=== PATIENT | female | born 1950 | race Caucasian/White ===

== ENCOUNTER 2017-07-12 20:15 | Inpatient (IN) | payer MEDICARE, OTHER ==
[2017-07-12] MEDS ORDERED: Albuterol 0.083% 2.5 MG/3 ML Neb Soln NEB ONE (20:47)
--- NOTE | 2017-07-12 20:47 | EDM.PDOC ---
ED HPI GENERAL MEDICAL PROBLEM - General Chief Complaint: Fever Stated Complaint: MEDICAL VIA TRI Time Seen by Provider: 07/12/17 20:46 Source of Information: Reports: Patient History Limitations: Reports: No Limitations - History of Present Illness INITIAL COMMENTS - FREE TEXT/NARRATIVE: pt arrived with increased sob and low o2 sats, Onset: Gradual, Other (pt became very confused today. ) Duration: Hour(s):, Getting Worse Location: Reports: Chest Associated Symptoms: Reports: Confusion, Cough, Fever/Chills, Loss of Appetite, Shortness of Breath denies pain Pain Score (Numeric/FACES): 0 - Related Data Allergies Allergy/AdvReac Type Severity Reaction Status Date / Time cyclobenzaprine HCl AdvReac Abdominal Verified 07/12/17 20:46 [From Flexeril] Pain hydrocodone bitartrate AdvReac Abdominal Verified 07/12/17 20:46 [From Vicodin] Pain Home Meds: Home Meds Folic Acid 1 mg PO DAILY 10/07/13 [History] Hydroxychloroquine [Plaquenil] 400 mg PO DAILY 10/07/13 [History] Methotrexate Sodium [Methotrexate] 20 mg PO Q7D 10/07/13 [History] Cholecalciferol (Vitamin D3) [Vitamin D3] 3,000 unit PO DAILY 02/06/14 [History] Ondansetron [Zofran ODT] 4 mg PO Q4HR PRN 02/06/14 [History] Cyanocobalamin (Vitamin B-12) [Vitamin B-12] 1,000 mcg SL DAILY 02/07/14 [ History] Multivitamin [Chewable Multi Vitamin] 2 tab PO DAILY 02/07/14 [History] Vitamin B Complex [Vitamin B-100 Complex] 1 each PO DAILY 02/07/14 [History] Aspirin [Adult Low Dose Aspirin EC] 81 mg PO DAILY 03/20/15 [History] LORazepam [Ativan] 0.5 mg PO Q6H PRN 08/11/15 [History] Albuterol Sulfate 3 ml INH Q4H PRN 09/11/16 [History] Fluticasone/Salmeterol [Advair Diskus 500-50] 1 puff INH BID 09/11/16 [History] Metoprolol Tartrate 12.5 mg PO BID 09/12/16 [History] traMADol [Ultram] 50 - 100 mg PO Q6H PRN 09/30/16 [History] Omeprazole 1 cap PO DAILY 02/22/17 [History] Ca Carb & Gluc/Mag Ox & Gluc [Calcium Magnesium Caplet] 1 tab PO DAILY 07/12/17 [History] Ranitidine [Zantac] 300 mg PO DAILY 07/12/17 [History] Past Medical History HEENT History: Reports: Impaired Vision, Other (See Below) Other HEENT History: "hole in septum" Cardiovascular History: Reports: None Other Respiratory History: Pt states she has a lung disease, celestial type disease? Gastrointestinal History: Reports: Bowel Obstruction, Chronic Constipation [employer] WORKER History: Reports: Musculoskeletal History: Reports: Arthritis, Fracture, Fibromyalgia, Osteoarthritis, Osteoporosis, RA Neurological History: Reports: Vertigo Psychiatric History: Reports: Anxiety, Panic Attack Endocrine/Metabolic History: Reports: Osteoporosis, Vitamin D Deficiency Hematologic History: Reports: Anemia, B12 Deficiency, Blood Transfusion(s), Iron Deficiency Immunologic History: Reports: None Oncologic (Cancer) History: Reports: None - Infectious Disease History Infectious Disease History: Reports: Chicken Pox Other Infectious Disease History: lymes disease - Past Surgical History Head Surgeries/Procedures: Reports: None Cardiovascular Surgical History: Reports: Other (See Below) GI Surgical History: Reports: Bariatric Procedure, Cholecystectomy, Colon, Colonoscopy, Hernia Repair/Other Other Female Surgeries/Procedures: bladder suspension Neurological Surgical History: Reports: None Musculoskeletal Surgical History: Reports: Carpal Tunnel Dermatological Surgical History: Reports: Skin Graft Social & Family History - Tobacco Use Smoking Status *Q: Never Smoker Second Hand Smoke Exposure: No - Caffeine Use Caffeine Use: Reports: Coffee - Alcohol Use Days Per Week of Alcohol Use: 0 - Recreational Drug Use Recreational Drug Use: No - Living Situation & Occupation Living situation: Reports: , with Family Occupation: Retired ED ROS GENERAL - Review of Systems Review Of Systems: See Below Constitutional: Reports: Fever, Chills, Malaise, Decreased Appetite HEENT: Reports: No Symptoms Respiratory: Reports: Shortness of Breath, Other (o2 sats ) Cardiovascular: Reports: No Symptoms Endocrine: Reports: No Symptoms GI/Abdominal: Reports: No Symptoms : Reports: No Symptoms Musculoskeletal: Reports: No Symptoms ED EXAM, GENERAL - Physical Exam Exam: See Below Free Text/Narrative:: pt arrived with a fever,confusion and history of low o2 sats. Exam Limited By: Respiratory Distress General Appearance: Alert, Anxious, Moderate Distress, Other ( pupils equal and reactive. ) Ears: Normal TMs Nose: Normal Inspection Throat/Mouth: Other ( mucous membranes were dry. ) Head: Atraumatic Neck: Normal Inspection Respiratory/Chest: Decreased Breath Sounds, Wheezing Cardiovascular: Tachycardia, Irregularly Irregular GI/Abdominal: Soft, Non-Tender (Female) Exam: Deferred Rectal (Female) Exam: Deferred Back Exam: Normal Inspection Extremities: Normal Inspection Neurological: Alert, Confused Course - Vital Signs Last Recorded V/S: Last Vital Signs Temp 38.4 C H 07/12/17 23:40 Pulse 92 07/12/17 23:40 Resp 24 H 07/12/17 23:40 BP 112/67 07/12/17 23:40 Pulse Ox 97 07/12/17 23:40 - Orders/Labs/Meds Orders: Active Orders 24 hr Category Date Time Status RT Aerosol Therapy [RC] ASDIRECTED Care 07/12/17 20:47 Active Ang Chest [CT] Stat Exams 07/12/17 22:09 Taken Chest 1V Frontal [CR] Stat Exams 07/12/17 20:46 Taken Head wo Cont [CT] Stat Exams 07/12/17 22:08 Taken CULTURE BLOOD [BC] Urgent Lab 07/12/17 20:49 Received CULTURE BLOOD [BC] Urgent Lab 07/12/17 20:59 Received CULTURE URINE [RM] Stat Lab 07/13/17 00:13 Ordered Iopamidol [Isovue-370 (76%)] Med 07/12/17 22:15 Active 100 ml IV . DIRECTED Sodium Chloride 0.9% [Normal Saline] 1,000 ml Med 07/12/17 21:00 Active IV ASDIRECTED Sodium Chloride 0.9% [Normal Saline] 80 ml Med 07/12/17 22:15 Active IV ASDIRECTED Sodium Chloride 0.9% [Saline Flush] Med 07/12/17 22:12 Active 10 ml FLUSH ASDIRECTED PRN Blood Culture x2 Reflex Set [OM.PC] Urgent Oth 07/12/17 20:44 Ordered Medication Orders Sodium Chloride (Normal Saline) 1,000 mls @ 250 mls/hr IV ASDIRECTED DG Last Admin: 07/12/17 21:03 Dose: 250 mls/hr Sodium Chloride (Normal Saline) 80 mls @ 3 mls/sec IV ASDIRECTED DG Last Admin: 07/12/17 22:49 Dose: 3 mls/sec Iopamidol (Isovue-370 (76%)) 100 ml IV . DIRECTED DG Last Admin: 07/12/17 22:49 Dose: 100 ml Sodium Chloride (Saline Flush) 10 ml FLUSH ASDIRECTED PRN PRN Reason: Keep Vein Open Last Admin: 07/12/17 22:49 Dose: 10 ml Labs: Laboratory Tests 07/12/17 07/12/17 07/12/17 Range/Units 20:40 20:40 20:40 WBC 5.1 (4.5-11.0) K/uL RBC 4.73 (3.30-5.50) M/uL Hgb 14.4 (12.0-15.0) g/dL Hct 43.9 (36.0-48.0) % MCV 93 (80-98) fL MCH 30 (27-31) pg MCHC 33 (32-36) % Plt Count 202 (150-400) K/uL Neut % (Auto) 76 H (36-66) % Lymph % (Auto) 16 L (24-44) % [place] % (Auto) 7 H (2-6) % Eos % (Auto) 1 L (2-4) % Baso % (Auto) 0 (0-1) % D-Dimer, Quantitative (0.0-400.0) ng/mL Puncture Site Rt radial ABG pH 7.433 (7.350-7.450) ABG pCO2 37.3 (35.0-42.0) mmHg ABG pO2 88.5 (75.0-100.0) mmHg ABG HCO3 24.5 (22.0-26.0) mmol/L ABG Total CO2 21.4 (21.0-25.0) mmol/L ABG O2 Saturation 95.4 (95.0-98.0) % ABG O2 Content 18.6 (15.0-23.0) %vol ABG Base Excess 1.0 mm/L ABG Hemoglobin 14.1 (12.0-16.0) g/dL ABG Oxyhemoglobin 93.4 % ABG Carboxyhemoglobin 0.1 (0.0-1.6) % ABG Methemoglobin 2.0 % Rodri Test Passed O2 Delivery Device Nasal cannula Sodium 136 L (140-148) mmol/L Potassium 3.8 (3.6-5.2) mmol/L Chloride 99 L (100-108) mmol/L Carbon Dioxide 28 (21-32) mmol/L Anion Gap 12.8 (5.0-14.0) mmol/L BUN 10 (7-18) mg/dL Creatinine 0.7 D (0.6-1.0) mg/dL Est Cr Clr Drug Dosing 54.48 mL/min Estimated GFR (MDRD) > 60 (>60) Glucose 112 H (74-106) mg/dL Calcium 8.6 (8.5-10.1) mg/dL Total Bilirubin 0.2 D (0.2-1.0) mg/dL AST 300 H D (15-37) U/L ALT 163 H (12-78) U/L Alkaline Phosphatase 84 D (46-116) U/L Ammonia (11-32) mmol/L C-Reactive Protein (0.0-0.3) mg/dL NT-Pro-B Natriuret Pep (5-125) pg/mL Total Protein 7.3 (6.4-8.2) g/dL Albumin 3.3 L (3.4-5.0) g/dL Globulin 4.0 H (2.3-3.5) g/dL Albumin/Globulin Ratio 0.8 L (1.2-2.2) Urine Color Urine Appearance Urine pH (4.5-8.0) Ur Specific [place] (1.008-1.030) Urine Protein (NEGATIVE) mg/dL Urine Glucose (UA) (NEGATIVE) mg/dL Urine Ketones (NEGATIVE) mg/dL Urine Occult Blood (NEGATIVE) Urine Nitrite (NEGATIVE) Urine Bilirubin (NEGATIVE) Urine Urobilinogen (NORMAL) mg/dL Ur Leukocyte Esterase (NEGATIVE) Urine RBC (0-5) Urine WBC (0-5) Ur Epithelial Cells Amorphous Sediment Urine Bacteria Urine Mucus 07/12/17 07/12/17 07/12/17 Range/Units 21:18 21:20 21:20 WBC (4.5-11.0) K/uL RBC (3.30-5.50) M/uL Hgb (12.0-15.0) g/dL Hct (36.0-48.0) % MCV (80-98) fL MCH (27-31) pg MCHC (32-36) % Plt Count (150-400) K/uL Neut % (Auto) (36-66) % Lymph % (Auto) (24-44) % [place] % (Auto) (2-6) % Eos % (Auto) (2-4) % Baso % (Auto) (0-1) % D-Dimer, Quantitative 735 H (0.0-400.0) ng/mL Puncture Site ABG pH (7.350-7.450) ABG pCO2 (35.0-42.0) mmHg ABG pO2 (75.0-100.0) mmHg ABG HCO3 (22.0-26.0) mmol/L ABG Total CO2 (21.0-25.0) mmol/L ABG O2 Saturation (95.0-98.0) % ABG O2 Content (15.0-23.0) %vol ABG Base Excess mm/L ABG Hemoglobin (12.0-16.0) g/dL ABG Oxyhemoglobin % ABG Carboxyhemoglobin (0.0-1.6) % ABG Methemoglobin % Rodri Test O2 Delivery Device Sodium (140-148) mmol/L Potassium (3.6-5.2) mmol/L Chloride (100-108) mmol/L Carbon Dioxide (21-32) mmol/L Anion Gap (5.0-14.0) mmol/L BUN (7-18) mg/dL Creatinine (0.6-1.0) mg/dL Est Cr Clr Drug Dosing mL/min Estimated GFR (MDRD) (>60) Glucose (74-106) mg/dL Calcium (8.5-10.1) mg/dL Total Bilirubin (0.2-1.0) mg/dL AST (15-37) U/L ALT (12-78) U/L Alkaline Phosphatase (46-116) U/L Ammonia (11-32) mmol/L C-Reactive Protein 2.54 H (0.0-0.3) mg/dL NT-Pro-B Natriuret Pep 91 (5-125) pg/mL Total Protein (6.4-8.2) g/dL Albumin (3.4-5.0) g/dL Globulin (2.3-3.5) g/dL Albumin/Globulin Ratio (1.2-2.2) Urine Color Urine Appearance Urine pH (4.5-8.0) Ur Specific [place] (1.008-1.030) Urine Protein (NEGATIVE) mg/dL Urine Glucose (UA) (NEGATIVE) mg/dL Urine Ketones (NEGATIVE) mg/dL Urine Occult Blood (NEGATIVE) Urine Nitrite (NEGATIVE) Urine Bilirubin (NEGATIVE) Urine Urobilinogen (NORMAL) mg/dL Ur Leukocyte Esterase (NEGATIVE) Urine RBC (0-5) Urine WBC (0-5) Ur Epithelial Cells Amorphous Sediment Urine Bacteria Urine Mucus 07/12/17 07/12/17 Range/Units 22:07 22:28 WBC (4.5-11.0) K/uL RBC (3.30-5.50) M/uL Hgb (12.0-15.0) g/dL Hct (36.0-48.0) % MCV (80-98) fL MCH (27-31) pg MCHC (32-36) % Plt Count (150-400) K/uL Neut % (Auto) (36-66) % Lymph % (Auto) (24-44) % [place] % (Auto) (2-6) % Eos % (Auto) (2-4) % Baso % (Auto) (0-1) % D-Dimer, Quantitative (0.0-400.0) ng/mL Puncture Site ABG pH (7.350-7.450) ABG pCO2 (35.0-42.0) mmHg ABG pO2 (75.0-100.0) mmHg ABG HCO3 (22.0-26.0) mmol/L ABG Total CO2 (21.0-25.0) mmol/L ABG O2 Saturation (95.0-98.0) % ABG O2 Content (15.0-23.0) %vol ABG Base Excess mm/L ABG Hemoglobin (12.0-16.0) g/dL ABG Oxyhemoglobin % ABG Carboxyhemoglobin (0.0-1.6) % ABG Methemoglobin % Rodri Test O2 Delivery Device Sodium (140-148) mmol/L Potassium (3.6-5.2) mmol/L Chloride (100-108) mmol/L Carbon Dioxide (21-32) mmol/L Anion Gap (5.0-14.0) mmol/L BUN (7-18) mg/dL Creatinine (0.6-1.0) mg/dL Est Cr Clr Drug Dosing mL/min Estimated GFR (MDRD) (>60) Glucose (74-106) mg/dL Calcium (8.5-10.1) mg/dL Total Bilirubin (0.2-1.0) mg/dL AST (15-37) U/L ALT (12-78) U/L Alkaline Phosphatase (46-116) U/L Ammonia 7 L (11-32) mmol/L C-Reactive Protein (0.0-0.3) mg/dL NT-Pro-B Natriuret Pep (5-125) pg/mL Total Protein (6.4-8.2) g/dL Albumin (3.4-5.0) g/dL Globulin (2.3-3.5) g/dL Albumin/Globulin Ratio (1.2-2.2) Urine Color Yellow Urine Appearance Slightly cloudy Urine pH 5.0 (4.5-8.0) Ur Specific [place] 1.020 (1.008-1.030) Urine Protein Negative (NEGATIVE) mg/dL Urine Glucose (UA) Normal (NEGATIVE) mg/dL Urine Ketones 15 H (NEGATIVE) mg/dL Urine Occult Blood Moderate (NEGATIVE) Urine Nitrite Negative (NEGATIVE) Urine Bilirubin Negative (NEGATIVE) Urine Urobilinogen Normal (NORMAL) mg/dL Ur Leukocyte Esterase Moderate (NEGATIVE) Urine RBC 0-5 (0-5) Urine WBC 10-20 H (0-5) Ur Epithelial Cells Few Amorphous Sediment Not seen Urine Bacteria Moderate Urine Mucus Not seen Meds: Medications Generic Name Dose Route Start Last Admin Trade Name Freq PRN Reason Stop Dose Admin Sodium Chloride 1,000 mls @ 250 mls/hr 07/12/17 21:00 07/12/17 21:03 Normal Saline IV 250 mls/hr ASDIRECTED DG Administration Sodium Chloride 80 mls @ 3 mls/sec 07/12/17 22:15 07/12/17 22:49 Normal Saline IV 3 mls/sec ASDIRECTED DG Administration Iopamidol 100 ml 07/12/17 22:15 07/12/17 22:49 Isovue-370 (76%) IV 100 ml . DIRECTED DG Administration Sodium Chloride 10 ml 07/12/17 22:12 07/12/17 22:49 Saline Flush FLUSH 10 ml ASDIRECTED PRN Administration Keep Vein Open Discontinued Medications Generic Name Dose Route Start Last Admin Trade Name Leonardo PRN Reason Stop Dose Admin Acetaminophen 650 mg 07/12/17 21:24 07/12/17 21:41 Tylenol PO 07/12/17 21:25 650 mg NOW ONE Administration Albuterol 2.5 mg 07/12/17 20:47 07/12/17 20:59 Proventil Neb Soln NEB 07/12/17 20:48 2.5 mg ONETIME ONE Administration - Re-Assessments/Exams Free Text/Narrative Re-Assessment/Exam: 07/13/17 00:24 pt did not have a elevated wbc. Her temp was greater than 102. She had been chilling and was quite confused. Her chest xray did not reveal a definite infiltrate. She was quite wheezy. Her urine did look infected. Because of the low o2 sats a cat scan of the chest was done which did not reveal pulmonary emboli. She did not have a definite looking pneumonia. Blod cultures are pending phuc urine culture is pending. Departure - Departure Time of Disposition: 00:28 Disposition: Admitted As Inpatient 64 Condition: Fair Clinical Impression: UTI (urinary tract infection), COPD exacerbation, Dehydration - Discharge Information Referrals: PCP,None [Primary Care Provider] - Forms: ED Department Discharge Care Plan Goals: admit to Dr Shepard - My Orders Last 24 Hours: My Active Orders 07/12/17 20:44 Blood Culture x2 Reflex Set [OM.PC] Urgent 07/12/17 20:46 Chest 1V Frontal [CR] Stat 07/12/17 20:47 RT Aerosol Therapy [RC] ASDIRECTED 07/12/17 20:49 CULTURE BLOOD [BC] Urgent 07/12/17 20:59 CULTURE BLOOD [BC] Urgent 07/12/17 21:00 Sodium Chloride 0.9% [Normal Saline] 1,000 ml IV ASDIRECTED 07/12/17 22:08 Head wo Cont [CT] Stat 07/12/17 22:09 Ang Chest [CT] Stat 07/12/17 22:12 Sodium Chloride 0.9% [Saline Flush] 10 ml FLUSH ASDIRECTED PRN 12/05/17 22:15 Iopamidol [Isovue-370 (76%)] 100 ml IV . DIRECTED Sodium Chloride 0.9% [Normal Saline] 80 ml IV ASDIRECTED 07/13/17 00:13 CULTURE URINE [RM] Stat - Assessment/Plan Last 24 Hours: My Active Orders 07/12/17 20:44 Blood Culture x2 Reflex Set [OM.PC] Urgent 07/12/17 20:46 Chest 1V Frontal [CR] Stat 07/12/17 20:47 RT Aerosol Therapy [RC] ASDIRECTED 07/12/17 20:49 CULTURE BLOOD [BC] Urgent 07/12/17 20:59 CULTURE BLOOD [BC] Urgent 07/12/17 21:00 Sodium Chloride 0.9% [Normal Saline] 1,000 ml IV ASDIRECTED 07/12/17 22:08 Head wo Cont [CT] Stat 07/12/17 22:09 Ang Chest [CT] Stat 07/12/17 22:12 Sodium Chloride 0.9% [Saline Flush] 10 ml FLUSH ASDIRECTED PRN 07/12/17 22:15 Iopamidol [Isovue-370 (76%)] 100 ml IV . DIRECTED Sodium Chloride 0.9% [Normal Saline] 80 ml IV ASDIRECTED 07/13/17 00:13 CULTURE URINE [RM] Stat
[2017-07-12] MEDS: Sodium Chloride 0.9% 1,000 ML IV SCH (21:03)
[2017-07-12] MEDS ORDERED: Acetaminophen 325 MG Tab PO ONE (21:24)
[2017-07-12] MEDS ORDERED: Sodium Chloride 0.9% 10 ML Syringe FLUSH PRN (22:12)
[2017-07-12] MEDS ORDERED: Sodium Chloride 0.9% 80 ML IV SCH (22:15)
[2017-07-12] MEDS ORDERED: Iopamidol 755 Mg/ML 100 ML Bottle IV SCH (22:15)
[2017-07-13] MEDS ORDERED: Ibuprofen 400 MG Tab PO ONE (00:19)
[2017-07-13] MEDS ORDERED: Levofloxacin/Dextrose 5%-Water 500 MG in Premix Bag 1 BAG IV ONE (00:20)
[2017-07-13] MEDS: Sodium Chloride 0.9% 1,000 ML IV SCH ×3 (00:47→05:35)
[2017-07-13] MEDS ORDERED: METHOTREXATE SODIUM 20 MG PO SCH (01:00)
[2017-07-13] MEDS ORDERED: Acetaminophen 325 MG Tab, 50 Tab Bulk Bottle PO PRN (01:33)
[2017-07-13] MEDS ORDERED: FLU Vacc TS 2017-18 (65yr UP)/PF 180 MCG/0.5 ML Syringe IM ONE (02:01)
[2017-07-13] MEDS: cefTRIAXone 1 GM in Sodium Chloride 0.9% 50 ML IV SCH (02:06)
[2017-07-13] MEDS: traMADol 50 MG Tab PO PRN ×2 (02:12→22:20)
--- NOTE | 2017-07-13 04:39 | HP ---
IDENTIFYING DATA: Svitlana Fernando is a 67-year-old female from [place], [place]. CHIEF COMPLAINT: Shortness of breath and reported fever. HISTORY OF PRESENT ILLNESS: A 67-year-old non-smoking female, has a history of chronic obstructive pulmonary disease with nocturnal O2 use as well as bronchodilator-inhaled therapies. She reports she has received her annual influenza vaccine and pneumococcal vaccine previously, and has not received her 2017 influenza vaccine. She has a two-day history of increasing congestion, cough, chest tightness, and scant sputum production, as well as fevers to 102 degrees with accompanying weakness and generalized confusion. She was transported to the emergency room for evaluation. She has had no purulent sputum production or hemoptysis noted. Appetite is diminished by patient's report. Initial confusion noted at the time of presentation, has improved with IV fluids, bronchodilator therapies, and O2 administration. PAST MEDICAL HISTORY: 1. History of obstructive pulmonary disease. 2. Additionally, she has noted history of hypertension. 3. Chronic rheumatoid arthritis with analgesic and anti-inflammatory therapies. HABITS: Non-smoker. No alcohol use. Caffeine intake is reported at one to one and a half cups of coffee daily. ALLERGIES: REPORTED TO CYCLOBENZAPRINE. GI UPSET AND ABDOMINAL PAIN WITH USE OF HYDROCODONE. CURRENT MEDICATIONS: 1. Folic acid 1 mg daily. 2. Plaquenil 400 mg daily. 3. Methotrexate 20 mg weekly. 4. Vitamin D3, 3000 units daily. 5. Zofran 4 mg q.4 hours p.r.n. nausea. 6. Vitamin B12, 1000 mcg sublingually daily. 7. Multivitamin with minerals two tablets daily. 8. Vitamin B complex one daily. 9. Aspirin 81 mg daily. 10.Lorazepam 0.5 mg q.6 hours p.r.n. anxiety. 11.Albuterol metered-dose inhaler, two puffs q.4 hours p.r.n. 12.Advair Diskus 500/50 one puff b.i.d. 13.Metoprolol tartrate 12.5 mg b.i.d. 14.Tramadol 50 mg to 100 mg q.6 hours p.r.n. pain. 15.Omeprazole 40 mg daily. 16.Calcium carbonate with magnesium oxide and calcium gluconate one tablet daily. 17.Ranitidine 300 mg daily. SOCIAL HISTORY: [place]. She is independent with performance of ADLs, able to dress, feed, bathe, and perform light household activities including laundry and cleaning and meal preparation. She no longer drives. She has had no recent falls when walking out or if she does use a walker. She ambulates independently in the house. FAMILY HISTORY: She denies familial history of recent acute respiratory illnesses. REVIEW OF SYSTEMS: NEUROLOGIC: Glasses are worn. She reports early cataract changes. No history of glaucoma, stroke, seizures, or focal weakness. Chronic hearing loss with deafness in the left ear and diminished auditory acuity in the right. CARDIAC: Noted history of hypertension. She reports an atrial septal defect. No history of [place] or congestive heart failure or diabetes. Lipid status is unknown. She has had two previous cardio-ablative procedures for reasons of dysrhythmia. No previous pacemaker placement. RESPIRATORY: Chronic obstructive pulmonary disease with O2 and inhaled therapy use. Request influenza vaccine today. GASTROINTESTINAL: Dyspeptic symptoms are managed with omeprazole. No recent nausea, emesis, hematemesis, diarrhea, melena, or hematochezia. No history of hepatitis or chronic liver disease. GENITOURINARY: She rises once nightly to void. No urinary incontinence or chronic renal disease. MUSCULOSKELETAL: Chronic rheumatoid arthritis managed with Plaquenil, methotrexate, and p.r.n. tramadol. She is followed by Rheumatology Services for ongoing management. PAST SURGICAL HISTORY: Previous surgeries include 1. Bariatric weight loss surgery. 2. Cholecystectomy. 3. Colonoscopy. PHYSICAL EXAMINATION: GENERAL: Appearance is that of a mildly weak and elderly female. Oxygen is in place with minimally labored respiratory effort. VITAL SIGNS: Initial vitals, temperature was elevated at 38.4 degrees centigrade, pulse rate was 92, respiratory rate was 24, blood pressure was 112/67, and O2 saturations were 97% with supplemental O2 by nasal cannula. HEENT: Diminished hearing. Canals and TMs are normal. Pupils are reactive to light. Sclerae are anicteric. No nasal congestion. She is edentulous. Oral mucosa is moist. NECK: No adenopathy or thyromegaly. Brisk carotid pulses. No bruits or JVD. LUNGS: Resonant, now is non-tachypneic. No wheezes are heard. She had bilateral inspiratory rales, most notably over the left anterior chest in the upper lungs. HEART: Regular without gallops. Grade 2 mid systolic murmur was heard at the apical area radiating to the left sternal border. ABDOMEN: Soft, nontender, and nondistended. No organomegaly. Active sounds. Good femoral pulses. No bruits. No CVA pain. EXTREMITIES: Good arterial pulses. Mild arthritic changes of the MP and IP joints of the hands. No acute inflammatory changes were noted. SKIN: Warm, pink, and dry without rashes. LABORATORY DATA: On admission, WBC was 5.1, hemoglobin was 14.4, and platelet count was 202,000 with 76 neutrophils, 16 lymphocytes, and 7 monos. ABGs with nasal cannula at 2 L include a pH of 7.43, pCO2 of 37, pO2 of 88.5, and bicarb of 24.5 with a carboxyhemoglobin within normal range at 0.1. Sodium of 136, potassium of 3.8, BUN of 10, creatinine of 0.7, glucose of 112, calcium of 8.6, AST is moderately elevated at 300, and alkaline phosphatase of 84. Urinalysis with specific gravity of 1.020, positive ketonuria, 10 to 20 wbc's, moderate bacteria, and few epithelial cells. Urine and blood cultures are pending. Ammonia level is low at 7. ProBNP was within normal range at 91. C-reactive protein is 2.54. D- dimer is elevated at 735. DIAGNOSTIC STUDIES: CT imaging of the chest did not reveal a confirmed evidence of pulmonary emboli or infiltrates. A nasal smear for influenza A and B is negative. IMPRESSION: 1. Presentation of increased cough, congestion, shortness of breath, and fever with a clinical presentation of early pneumonia. 2. Chronic obstructive pulmonary disease. 3. Chronic rheumatoid arthritis, on relative immunosuppressant therapy with the use of methotrexate and Plaquenil. 4. Hypertension. 5. Intermittent dyspepsia. PLAN: The patient will be admitted to inpatient services. We will provide oxygen, respiratory monitoring, and use of inhaled bronchodilator therapies. Additionally, blood culture is pending. We will initiate empiric antibiotic therapy with oral azithromycin and IV ceftriaxone. Anticipate hospital stay of less than 72 hours and subsequent discharge to home with outpatient followup. We will continue with the anti-rheumatologic therapies previously initiated. If liver transaminases remain elevated, consider also an abdominal ultrasound for further evaluation of elevated liver function tests. A full code status will be maintained. Allow activity as tolerated with standby assistance. Regular diet to be provided. We will administer influenza vaccine during hospital stay. Jey Shepard MD /[id number]
--- NOTE | 2017-07-13 05:53 | PN ---
DATE OF SERVICE: 07/13/2017 SUBJECTIVE: Adult female with a history of obstructive pulmonary disease who was admitted in the size maker hours with fever, congestion, cough, and increased shortness of breath. She was found to have respiratory rales and febrile presentation consistent with early pulmonary infection with a normal WBC and chest x-ray. She has had ongoing cough through the night as well as mild shortness of breath. Fever has corrected with antipyretics. Denies pain. OBJECTIVE: VITAL SIGNS: Temperature 37.5 degrees centigrade, pulse rate 82 and regular, blood pressure 92/44, respiratory rate 16, with supplemental O2 at 98% by oxygen at 2 L nasal cannula. NECK: Brisk carotid pulses. No stridor. No bruits. LUNGS: Frequent mildly productive cough is heard. Inspiratory rales persist over the right upper chest. No wheezes or rhonchi. HEART: Regular without murmurs. SKIN: Warm and pink. IMPRESSION AND PLANS: Early pulmonary infection. We will continue with broad-spectrum antibiotics and bronchodilator therapies as well as supplemental O2. We will provide Robitussin AC on a p.r.n. basis for cough. The patient is cautioned of potential GI upset from codeine containing products. IV is decreased to saline lock. Continue with oral azithromycin and IV ceftriaxone with oral azithromycin and IV ceftriaxone pending. Jey Shepard MD /[id number]
[2017-07-13] MEDS ORDERED: Formoterol/Mometasone 200-5 MCG 8.8 GM Inhaler IH SCH ×2 (07:00→07:17)
[2017-07-13] MEDS: Ondansetron 4 MG Tab.DIS PO PRN ×2 (07:34→12:12)
[2017-07-13] MEDS: Codeine/guaiFENesin 100mg-10 MG/5 ML Syrup 10 ML Cup PO PRN ×4 (07:40→22:20)
--- NOTE | 2017-07-13 08:44 | CR ---
Chest 1V Frontal INDICATION: sob COMPARISON: 09/14/2016 FINDINGS: AP portable chest. Cardiomegaly and vascular congestion. No focal consolidation or pleura l effusion. IMPRESSION: CHF.
[2017-07-13] MEDS: Pantoprazole 40 MG Tab.CR PO SCH (08:51)
[2017-07-13] MEDS: Aspirin 81 MG Tab.EC PO SCH (08:52)
[2017-07-13] MEDS: Folic Acid 1 MG Tab PO SCH (08:52)
[2017-07-13] MEDS: Metoprolol Tartrate 25 MG Tab PO SCH ×2 (08:52→21:52)
[2017-07-13] MEDS: Hydroxychloroquine 200 MG Tab PO SCH (08:53)
[2017-07-13] MEDS: Vitamin B Complex Tab PO SCH (08:53)
[2017-07-13] MEDS: Cholecalciferol (Vitamin D3) 1,000 Unit Tab PO SCH (08:54)
[2017-07-13] MEDS ORDERED: Azithromycin 250 MG Tab PO SCH (09:00)
[2017-07-13] MEDS ORDERED: OMEPRAZOLE PO SCH (09:00)
[2017-07-13] MEDS ORDERED: Non-Formulary Medication 1 Each (Fluticasone/Salmeterol [Advair Diskus 500-50] 1 PUFF) INH SCH (09:00)
[2017-07-13] MEDS: MAG OX PO SCH (09:10)
[2017-07-13] MEDS: CA CARB PO SCH (09:10)
[2017-07-13] MEDS: GLUC PO SCH (09:10)
[2017-07-13] MEDS: Formoterol/Mometasone 200-5 MCG 8.8 GM Inhaler IH SCH ×2 (09:31→21:52)
[2017-07-13] MEDS: Acetaminophen 325 MG Tab PO PRN ×2 (12:07→23:48)
[2017-07-13] MEDS: Albuterol/Ipratropium 3.0-0.5 MG/3 ML Neb Soln NEB PRN (23:54)
[2017-07-14] MEDS: cefTRIAXone 1 GM in Sodium Chloride 0.9% 50 ML IV SCH (01:33)
[2017-07-14] MEDS: LORazepam 0.5 MG Tab PO PRN ×2 (01:33→21:59)
[2017-07-14] MEDS: Formoterol/Mometasone 200-5 MCG 8.8 GM Inhaler IH SCH ×2 (07:42→20:59)
[2017-07-14] MEDS ORDERED: Midazolam 1 MG/ML 2 ML SDV ONE (08:48)
[2017-07-14] MEDS ORDERED: fentaNYL 100 MCG/2 ML SDV ONE (08:48)
[2017-07-14] MEDS ORDERED: Propofol 200 MG/20 ML SDV ONE (08:48)
[2017-07-14] MEDS: Potassium Chloride 20 MEQ, Lidocaine 1% 2 ML in Sodium Chloride 0.9% 100 ML IV SCH ×2 (10:02→13:55)
--- NOTE | 2017-07-14 11:48 | PCM.PN ---
- General Info Date of Service: 07/14/17 Functional Status: Reports: Pain Controlled, Tolerating Diet - Review of Systems General: Reports: Weakness Pulmonary: Reports: Shortness of Breath, Cough Systems Review Comment:: No acute events overnight. Supplemental oxygen requirement has been decreasing. No abdominal pain or nausea. Tolerated supper last night without vomiting. Still has a little bit of a cough. Mental status seems back to normal. No fevers overnight. - Patient Data Vitals - Most Recent: Last Vital Signs Temp 36.5 C 07/14/17 11:00 Pulse 79 07/14/17 11:00 Resp 16 07/14/17 07:23 BP 110/61 07/14/17 11:00 Pulse Ox 97 07/14/17 11:00 Weight - Most Recent: 59.058 kg I&O - Last 24 Hours: Intake & Output 07/13/17 07/14/17 07/14/17 22:59 06:59 14:59 Intake Total 240 50 Output Total 1000 400 400 Balance -760 -350 -400 Lab Results Last 24 Hours: Laboratory Results - last 24 hr 07/14/17 07/14/17 Range/Units 04:45 04:45 WBC 5.6 (4.5-11.0) K/uL RBC 4.19 (3.30-5.50) M/uL Hgb 12.4 D (12.0-15.0) g/dL Hct 39.3 (36.0-48.0) % MCV 94 (80-98) fL MCH 30 (27-31) pg MCHC 32 (32-36) % Plt Count 181 (150-400) K/uL Sodium 143 (140-148) mmol/L Potassium 3.5 L (3.6-5.2) mmol/L Chloride 108 (100-108) mmol/L Carbon Dioxide 29 (21-32) mmol/L Anion Gap 9.5 (5.0-14.0) mmol/L BUN 6 L (7-18) mg/dL Creatinine 0.6 (0.6-1.0) mg/dL Est Cr Clr Drug Dosing 63.56 mL/min Estimated GFR (MDRD) > 60 (>60) Glucose 85 (74-106) mg/dL Calcium 8.4 L (8.5-10.1) mg/dL Total Bilirubin 0.2 (0.2-1.0) mg/dL AST 195 H (15-37) U/L ALT 125 H (12-78) U/L Alkaline Phosphatase 63 (46-116) U/L Total Protein 5.9 L (6.4-8.2) g/dL Albumin 2.6 L (3.4-5.0) g/dL Globulin 3.3 (2.3-3.5) g/dL Albumin/Globulin Ratio 0.8 L (1.2-2.2) Med Orders - Current: Current Medications Acetaminophen (Tylenol) 650 mg PO Q4H PRN PRN Reason: Pain Last Admin: 07/13/17 23:48 Dose: 650 mg Albuterol/Ipratropium (Duoneb 3.0-0.5 Mg/3 Ml) 3 ml NEB Q4H PRN PRN Reason: shortness of breath Last Admin: 07/13/17 23:54 Dose: 3 ml Aspirin (Halfprin) 81 mg PO DAILY DG Last Admin: 07/13/17 08:52 Dose: 81 mg Azithromycin (Zithromax) 250 mg PO DAILY DG Stop: 07/17/17 09:01 Cholecalciferol (Vitamin D3) 3,000 units PO DAILY DG Last Admin: 07/13/17 08:54 Dose: 3,000 units Folic Acid (Folic Acid) 1 mg PO DAILY GD Last Admin: 07/13/17 08:52 Dose: 1 mg Guaifenesin/Codeine Phosphate (Robitussin Ac) 10 ml PO Q4H PRN PRN Reason: Cough Last Admin: 07/13/17 22:20 Dose: 10 ml Hydroxychloroquine Sulfate (Plaquenil) 400 mg PO DAILY DG Last Admin: 07/13/17 08:53 Dose: 400 mg Ceftriaxone Sodium 1 gm/ (Sodium Chloride) 50 mls @ 100 mls/hr IV Q24H DG Last Admin: 07/14/17 01:33 Dose: 100 mls/hr Potassium Chloride 20 meq/Lidocaine HCl 2 ml/ Sodium Chloride 112 mls @ 56 mls/ hr IV Q2H DG Stop: 07/14/17 13:29 Last Admin: 07/14/17 10:02 Dose: 56 mls/hr Influenza Virus Vaccine (Fluzone High-Dose ) 180 mcg IM .ONCE ONE Stop: 07/14/17 14:01 Lorazepam (Ativan) 0.5 mg PO Q6H PRN PRN Reason: ANXIETY Last Admin: 07/14/17 01:33 Dose: 0.5 mg Methotrexate (Methotrexate) 20 mg PO Q7D@2100 [facility] Metoprolol Tartrate (Lopressor) 12.5 mg PO BID [facility] Last Admin: 07/13/17 21:52 Dose: 12.5 mg Mometasone Furoate/Formoterol Fumar (Dulera 200-5 Mcg) 2 puff IH BIDRT [facility] Last Admin: 07/14/17 07:42 Dose: 2 puff (Ca Carb & Gluc/Mag Ox & Gluc [Calcium Magnesium Caplet] 1 1 tab PO DAILY [facility] Last Admin: 07/13/17 09:10 Dose: Not Given Ondansetron HCl (Zofran Odt) 4 mg PO Q4H PRN PRN Reason: Nausea Last Admin: 07/13/17 12:12 Dose: 4 mg Pantoprazole Sodium (Protonix) 40 mg PO ACBREAKFAST [facility] Last Admin: 07/13/17 08:51 Dose: 40 mg Ranitidine HCl (Zantac) 300 mg PO DAILY [facility] Last Admin: 07/13/17 08:54 Dose: 300 mg Sodium Chloride (Saline Flush) 10 ml FLUSH ASDIRECTED PRN PRN Reason: Keep Vein Open Last Admin: 07/12/17 22:49 Dose: 10 ml Tramadol HCl (Ultram) 50 mg PO Q8H PRN PRN Reason: Pain Last Admin: 07/13/17 22:20 Dose: 50 mg Vitamin B Complex (Vitamin B Complex) 1 each PO DAILY [facility] Last Admin: 07/13/17 08:53 Dose: 1 each Discontinued Medications Acetaminophen (Tylenol) 650 mg PO NOW ONE Stop: 07/12/17 21:25 Last Admin: 07/12/17 21:41 Dose: 650 mg Albuterol (Proventil Neb Soln) 2.5 mg NEB ONETIME ONE Stop: 07/12/17 20:48 Last Admin: 07/12/17 20:59 Dose: 2.5 mg Azithromycin (Zithromax) 500 mg PO DAILY [facility] Stop: 07/13/17 09:01 Last Admin: 07/13/17 08:54 Dose: 500 mg Fentanyl (Sublimaze) Confirm Administered Dose 100 mcg .ROUTE .STK-MED ONE Stop: 07/14/17 08:49 Sodium Chloride (Normal Saline) 1,000 mls @ 250 mls/hr IV ASDIRECTED [facility] Last Admin: 07/13/17 05:35 Dose: 250 mls/hr Sodium Chloride (Normal Saline) 80 mls @ 3 mls/sec IV ASDIRECTED [facility] Last Admin: 07/12/17 22:49 Dose: 3 mls/sec Levofloxacin/Dextrose 500 mg/ (Premix) 100 mls @ 100 mls/hr IV ONETIME ONE Stop: 07/13/17 01:19 Last Admin: 07/13/17 00:31 Dose: 100 mls/hr Ibuprofen (Motrin) 400 mg PO ONETIME ONE Stop: 07/13/17 00:20 Last Admin: 07/13/17 00:29 Dose: 400 mg Iopamidol (Isovue-370 (76%)) 100 ml IV . DIRECTED [facility] Last Admin: 07/12/17 22:49 Dose: 100 ml Midazolam HCl (Versed 1 Mg/Ml) Confirm Administered Dose 2 mg .ROUTE .STK-MED ONE Stop: 07/14/17 08:49 Mometasone Furoate/Formoterol Fumar (Dulera 200-5 Mcg) 2 puff IH BIDRT [facility] Stop: 07/13/17 07:00 Mometasone Furoate/Formoterol Fumar (Dulera 200-5 Mcg) 2 puff IH BIDRT [facility] Non-Formulary Medication (Methotrexate Sodium [Methotrexate]) 20 mg PO Q7D [facility] Last Admin: 07/13/17 02:26 Dose: Not Given Propofol (Diprivan 20 Ml) Confirm Administered Dose 200 mg .ROUTE .STK-MED ONE Stop: 07/14/17 08:49 - Exam Quality Assessment: Supplemental Oxygen General: Alert, Oriented, Cooperative, No Acute Distress Neck: Supple Lungs: Clear to Auscultation, Normal Respiratory Effort. No: Wheezing Cardiovascular: Regular Rate, Regular Rhythm GI/Abdominal Exam: Soft, No Distention Extremities: No Pedal Edema Psy/Mental Status: Alert, Normal Affect - Problem List Review Problem List Initiated/Reviewed/Updated: Yes - My Orders Last 24 Hours: My Active Orders 07/13/17 13:24 Consult to Physician [CONS] Routine 07/13/17 13:25 Notify Provider Consults [RC] ASDIRECTED 07/13/17 Lunch Soft Diet [DIET] 07/14/17 09:30 Potassium Chloride 20 meq Lidocaine 1% [Xylocaine 1%] 2 ml Sodium Chloride 0.9 % [Normal Saline] 100 ml IV Q2H 07/14/17 Breakfast NPO After Midnight [Nothing per Oral After Midnight Diet] [DIET] 07/15/17 05:00 COMPREHENSIVE METABOLIC PN,CMP [CHEM] Timed - Plan Plan:: ASSESSMENT AND PLAN - Acute bronchitis - mild supplemental oxygen requirement but seems to be improving. Cough is tolerable at this time. Unclear if virus or bacteria but plan to continue antibiotics for a least a short course. -Continue ceftriaxone and azithromycin -Supplement oxygen as needed -Cough suppressant Acute cystitis - urine sample suggestive of infection and cultures growing a gram-negative rods with identification pending. Should be covered well with ceftriaxone. -Continue antibiotics as above -Follow-up culture Early satiety - patient reported feeling full after eating with some nausea. EGD unremarkable today. Exact cause is unclear but appetite is improving and hopefully this was transient. -Advance diet as tolerated Rheumatoid arthritis - symptoms stable at this time and tolerating current medications. Maintenance issues - - DVT prophylaxis - SCDs - GI prophylaxis - H2 lana - Nutrition - soft diet Disposition - anticipate discharge to home after the hospital stay Eldon Grigsby M.D.
[2017-07-14] MEDS: Pantoprazole 40 MG Tab.CR PO SCH (12:27)
[2017-07-14] MEDS: Metoprolol Tartrate 25 MG Tab PO SCH ×2 (12:28→20:59)
[2017-07-14] MEDS: GLUC PO SCH (12:28)
[2017-07-14] MEDS: Aspirin 81 MG Tab.EC PO SCH (12:28)
[2017-07-14] MEDS: CA CARB PO SCH (12:28)
[2017-07-14] MEDS: MAG OX PO SCH (12:28)
[2017-07-14] MEDS: Hydroxychloroquine 200 MG Tab PO SCH (12:28)
[2017-07-14] MEDS: Folic Acid 1 MG Tab PO SCH (12:28)
[2017-07-14] MEDS: Vitamin B Complex Tab PO SCH (12:29)
[2017-07-14] MEDS: Cholecalciferol (Vitamin D3) 1,000 Unit Tab PO SCH (12:29)
[2017-07-14] MEDS: Azithromycin 250 MG Tab PO SCH (12:29)
[2017-07-14] MEDS ORDERED: FLU Vacc TS 2017-18 (65yr UP)/PF 180 MCG/0.5 ML Syringe IM ONE (14:00)
[2017-07-14] MEDS: Ondansetron 4 MG Tab.DIS PO PRN (14:52)
[2017-07-14] MEDS: Codeine/guaiFENesin 100mg-10 MG/5 ML Syrup 10 ML Cup PO PRN ×3 (14:52→23:52)
--- NOTE | 2017-07-14 15:10 | OR ---
DATE OF PROCEDURE: 07/14/2017 PROCEDURE PERFORMED: Esophagogastroduodenoscopy. FINDINGS: 1. Normal Momo-en-Y. 2. No evidence of narrowing, ulcer, stricture, or any other abnormalities. COMPLICATIONS: None. ASSISTANTS: None. ANESTHESIA: MAC. PREOPERATIVE DIAGNOSIS: Epigastric pain. POSTOPERATIVE DIAGNOSIS: Epigastric pain. RISKS: Risks, benefits, alternatives, limitations including, but not limited to infection, bleeding, and perforation were explained to the patient, who understands these risks and wishes to proceed. PROCEDURE IN DETAIL: The patient was placed in left lateral decubitus position. The EGD scope was introduced and advanced atraumatically to the Momo-en-Y anastomosis. There was no evidence of narrowing, no stricturing, no ulceration, no old or new blood. The Momo-en-Y limb was also normal. The patient tolerated the procedure well. Jasiel Quintana MD /[id number]
[2017-07-14] MEDS: traMADol 50 MG Tab PO PRN (21:58)
[2017-07-14] MEDS: Acetaminophen 325 MG Tab PO PRN (23:51)
[2017-07-15] MEDS: cefTRIAXone 1 GM in Sodium Chloride 0.9% 50 ML IV SCH (02:27)
[2017-07-15] MEDS: Codeine/guaiFENesin 100mg-10 MG/5 ML Syrup 10 ML Cup PO PRN ×2 (06:57→12:17)
[2017-07-15] MEDS: Pantoprazole 40 MG Tab.CR PO SCH ×2 (07:46→16:47)
[2017-07-15] MEDS: Ondansetron 4 MG Tab.DIS PO PRN ×2 (07:46→12:18)
[2017-07-15] MEDS: Formoterol/Mometasone 200-5 MCG 8.8 GM Inhaler IH SCH ×2 (08:04→20:52)
[2017-07-15] MEDS: GLUC PO SCH (08:36)
[2017-07-15] MEDS: CA CARB PO SCH (08:36)
[2017-07-15] MEDS: Folic Acid 1 MG Tab PO SCH (08:36)
[2017-07-15] MEDS: MAG OX PO SCH (08:36)
[2017-07-15] MEDS: Hydroxychloroquine 200 MG Tab PO SCH (08:36)
[2017-07-15] MEDS: Aspirin 81 MG Tab.EC PO SCH (08:36)
[2017-07-15] MEDS: Cholecalciferol (Vitamin D3) 1,000 Unit Tab PO SCH (08:37)
[2017-07-15] MEDS: Azithromycin 250 MG Tab PO SCH (08:37)
[2017-07-15] MEDS: Vitamin B Complex Tab PO SCH ×2 (08:37→08:51)
[2017-07-15] MEDS: Metoprolol Tartrate 25 MG Tab PO SCH ×2 (08:48→20:56)
[2017-07-15] MEDS: Nitrofurantoin Monohydrate/Macrocrystalline 100 MG Cap PO SCH ×2 (09:43→20:55)
[2017-07-15] MEDS: Acetaminophen 325 MG Tab PO PRN ×3 (09:48→20:57)
[2017-07-15] MEDS: LORazepam 0.5 MG Tab PO PRN ×2 (10:50→20:58)
[2017-07-15] MEDS: Albuterol/Ipratropium 3.0-0.5 MG/3 ML Neb Soln NEB PRN (13:49)
[2017-07-15] MEDS ORDERED: Albuterol 0.083% 2.5 MG/3 ML Neb Soln NEB PRN (14:15)
--- NOTE | 2017-07-15 14:23 | PCM.PN ---
- General Info Date of Service: 07/15/17 Functional Status: Reports: Pain Controlled. Denies: Tolerating Diet - Review of Systems General: Denies: Fever Pulmonary: Reports: Shortness of Breath, Cough Gastrointestinal: Reports: Abdominal Pain Systems Review Comment:: no acute events overnight. Oxygenation has remained stable and clinically she feels better from respiratory standpoint though she does have a persistent cough , especially with any activity. She continues to have difficulty with abdominal pain after eating and thinks it may even be a little worse today. Pain starts 30 or more minutes after eating and rises to a moderate or severe level before slowly decreasing. She does not have pain if she does not eat. She has not had any fevers. AST and ALT levels continue to improve. - Patient Data Vitals - Most Recent: Last Vital Signs Temp 36.5 C 07/15/17 10:33 Pulse 62 07/15/17 10:33 Resp 18 07/15/17 10:33 BP 114/67 07/15/17 10:33 Pulse Ox 100 07/15/17 10:33 Weight - Most Recent: 59.058 kg I&O - Last 24 Hours: Intake & Output 07/14/17 07/15/17 07/15/17 22:59 06:59 14:59 Intake Total 715 410 10 Output Total 1375 700 800 Balance -704 -290 -030 Lab Results Last 24 Hours: Laboratory Results - last 24 hr 07/15/17 Range/Units 05:30 Sodium 143 (140-148) mmol/L Potassium 3.8 (3.6-5.2) mmol/L Chloride 107 (100-108) mmol/L Carbon Dioxide 29 (21-32) mmol/L Anion Gap 6.6 (5.0-14.0) mmol/L BUN 7 (7-18) mg/dL Creatinine 0.6 (0.6-1.0) mg/dL Est Cr Clr Drug Dosing 63.56 mL/min Estimated GFR (MDRD) > 60 (>60) Glucose 93 (74-106) mg/dL Calcium 8.8 (8.5-10.1) mg/dL Total Bilirubin 0.2 (0.2-1.0) mg/dL AST 117 H (15-37) U/L ALT 95 H (12-78) U/L Alkaline Phosphatase 63 (46-116) U/L Total Protein 5.9 L (6.4-8.2) g/dL Albumin 2.6 L (3.4-5.0) g/dL Globulin 3.3 (2.3-3.5) g/dL Albumin/Globulin Ratio 0.8 L (1.2-2.2) Med Orders - Current: Current Medications Acetaminophen (Tylenol) 650 mg PO Q4H PRN PRN Reason: Pain Last Admin: 07/15/17 09:48 Dose: 650 mg Aspirin (Halfprin) 81 mg PO DAILY [facility] Last Admin: 07/15/17 08:36 Dose: 81 mg Azithromycin (Zithromax) 250 mg PO DAILY [facility] Stop: 07/17/17 09:01 Last Admin: 07/15/17 08:37 Dose: 250 mg Cholecalciferol (Vitamin D3) 3,000 units PO DAILY [facility] Last Admin: 07/15/17 08:37 Dose: 3,000 units Folic Acid (Folic Acid) 1 mg PO DAILY [facility] Last Admin: 07/15/17 08:36 Dose: 1 mg Guaifenesin/Codeine Phosphate (Robitussin Ac) 10 ml PO Q4H PRN PRN Reason: Cough Last Admin: 07/15/17 12:17 Dose: 10 ml Hydroxychloroquine Sulfate (Plaquenil) 400 mg PO DAILY [facility] Last Admin: 07/15/17 08:36 Dose: 400 mg Lorazepam (Ativan) 0.5 mg PO Q6H PRN PRN Reason: ANXIETY Last Admin: 07/15/17 10:50 Dose: 0.5 mg Methotrexate (Methotrexate) 20 mg PO Q7D@2100 [facility] Metoprolol Tartrate (Lopressor) 12.5 mg PO BID [facility] Last Admin: 07/15/17 08:48 Dose: 12.5 mg Mometasone Furoate/Formoterol Fumar (Dulera 200-5 Mcg) 2 puff IH BIDRT [facility] Last Admin: 07/15/17 08:04 Dose: 2 puff Nitrofurantoin Macrocrystals (Macrobid) 100 mg PO BID [facility] Last Admin: 07/15/17 09:43 Dose: 100 mg (Ca Carb & Gluc/Mag Ox & Gluc [Calcium Magnesium Caplet] 1 1 tab PO DAILY [facility] Last Admin: 07/15/17 08:36 Dose: Not Given Ondansetron HCl (Zofran Odt) 4 mg PO Q4H PRN PRN Reason: Nausea Last Admin: 07/15/17 12:18 Dose: 4 mg Sodium Chloride (Saline Flush) 10 ml FLUSH ASDIRECTED PRN PRN Reason: Keep Vein Open Last Admin: 07/12/17 22:49 Dose: 10 ml Tramadol HCl (Ultram) 50 mg PO Q8H PRN PRN Reason: Pain Last Admin: 07/14/17 21:58 Dose: 50 mg Vitamin B Complex (Vitamin B Complex) 1 each PO DAILY [facility] Last Admin: 07/15/17 08:51 Dose: Not Given Discontinued Medications Acetaminophen (Tylenol) 650 mg PO NOW ONE Stop: 07/12/17 21:25 Last Admin: 07/12/17 21:41 Dose: 650 mg Albuterol (Proventil Neb Soln) 2.5 mg NEB ONETIME ONE Stop: 07/12/17 20:48 Last Admin: 07/12/17 20:59 Dose: 2.5 mg Albuterol/Ipratropium (Duoneb 3.0-0.5 Mg/3 Ml) 3 ml NEB Q4H PRN PRN Reason: shortness of breath Last Admin: 07/15/17 13:49 Dose: 3 ml Azithromycin (Zithromax) 500 mg PO DAILY DG Stop: 07/13/17 09:01 Last Admin: 07/13/17 08:54 Dose: 500 mg Fentanyl (Sublimaze) Confirm Administered Dose 100 mcg .ROUTE .STK-MED ONE Stop: 07/14/17 08:49 Sodium Chloride (Normal Saline) 1,000 mls @ 250 mls/hr IV ASDIRECTED [facility] Last Admin: 07/13/17 05:35 Dose: 250 mls/hr Sodium Chloride (Normal Saline) 80 mls @ 3 mls/sec IV ASDIRECTED [facility] Last Admin: 07/12/17 22:49 Dose: 3 mls/sec Levofloxacin/Dextrose 500 mg/ (Premix) 100 mls @ 100 mls/hr IV ONETIME ONE Stop: 07/13/17 01:19 Last Admin: 07/13/17 00:31 Dose: 100 mls/hr Ceftriaxone Sodium 1 gm/ (Sodium Chloride) 50 mls @ 100 mls/hr IV Q24H [facility] Last Admin: 07/15/17 02:27 Dose: 100 mls/hr Potassium Chloride 20 meq/Lidocaine HCl 2 ml/ Sodium Chloride 112 mls @ 56 mls/ hr IV Q2H [facility] Stop: 07/14/17 13:29 Last Admin: 07/14/17 13:55 Dose: 56 mls/hr Ibuprofen (Motrin) 400 mg PO ONETIME ONE Stop: 07/13/17 00:20 Last Admin: 07/13/17 00:29 Dose: 400 mg Influenza Virus Vaccine (Fluzone High-Dose 2017-) 180 mcg IM .ONCE ONE Stop: 07/14/17 14:01 Last Admin: 07/14/17 18:09 Dose: 180 mcg Iopamidol (Isovue-370 (76%)) 100 ml IV . DIRECTED [facility] Last Admin: 07/12/17 22:49 Dose: 100 ml Midazolam HCl (Versed 1 Mg/Ml) Confirm Administered Dose 2 mg .ROUTE .STK-MED ONE Stop: 07/14/17 08:49 Mometasone Furoate/Formoterol Fumar (Dulera 200-5 Mcg) 2 puff IH BIDRT [facility] Stop: 07/13/17 07:00 Mometasone Furoate/Formoterol Fumar (Dulera 200-5 Mcg) 2 puff IH BIDRT [facility] Non-Formulary Medication (Methotrexate Sodium [Methotrexate]) 20 mg PO Q7D [facility] Last Admin: 07/13/17 02:26 Dose: Not Given Pantoprazole Sodium (Protonix) 40 mg PO ACBREAKFAST [facility] Last Admin: 07/15/17 07:46 Dose: 40 mg Propofol (Diprivan 20 Ml) Confirm Administered Dose 200 mg .ROUTE .STK-MED ONE Stop: 07/14/17 08:49 Ranitidine HCl (Zantac) 300 mg PO DAILY [facility] Last Admin: 07/15/17 08:37 Dose: 300 mg - Exam Quality Assessment: Supplemental Oxygen General: Alert, Oriented, Cooperative, No Acute Distress Lungs: Normal Respiratory Effort, Rales (mild diffuse) Cardiovascular: Regular Rate, Regular Rhythm GI/Abdominal Exam: Normal Bowel Sounds, Soft, Non-Tender, No Distention Extremities: No Pedal Edema Psy/Mental Status: Alert, Normal Affect - Problem List Review Problem List Initiated/Reviewed/Updated: Yes - My Orders Last 24 Hours: My Active Orders 07/15/17 09:00 Nitrofurantoin [place]/Macrocryst [Macrobid] 100 mg PO BID 07/15/17 14:14 Benzonatate [Tessalon Perles] 100 mg PO TID PRN 07/15/17 14:15 RT Aerosol Therapy [RC] ASDIRECTED Albuterol [Proventil Neb Soln] 2.5 mg NEB Q4H PRN 07/15/17 16:30 Pantoprazole [ProTONIX] 40 mg PO BIDAC 07/15/17 21:00 Cefdinir [Omnicef] 300 mg PO BID 07/15/17 22:00 Albuterol/Ipratropium [DuoNeb 3.0-0.5 MG/3 ML] 3 ml NEB QID 07/16/17 05:00 BASIC METABOLIC PANEL,BMP [CHEM] Timed CBC W/O DIFF,HEMOGRAM [HEME] Timed (1) 07/16/17 07:00 Abdomen Pelvis w Cont [CT] Routine - Plan Plan:: ASSESSMENT AND PLAN - Acute bronchitis - mild supplemental oxygen requirement but seems to be improving. Cough is is bothersome at this time. -Continue azithromycin, change ceftriaxone to cefdinir -Supplement oxygen as needed -Cough suppressant -Trial of Tessalon Perles Acute cystitis due to ESBL Escherichia coli - positive urine culture. -Start nitrofurantoin -Contact precautions Generalized abdominal pain, postprandial - EGD unremarkable today. She thinks her pain is worse today. -Pain control -Advance diet as tolerated -CT of the abdomen and pelvis in the morning Rheumatoid arthritis - symptoms stable at this time and tolerating current medications. Maintenance issues - - DVT prophylaxis - SCDs - GI prophylaxis - start PPI - Nutrition - soft diet Disposition - anticipate discharge to home after the hospital stay Eldon Grigsby M.D.
[2017-07-15] MEDS: traMADol 50 MG Tab PO PRN (14:53)
[2017-07-15] MEDS: Benzonatate 100 MG Cap PO PRN ×2 (14:53→21:32)
[2017-07-15] MEDS: Cefdinir 300 MG Cap PO SCH (20:55)
[2017-07-15] MEDS ORDERED: Methotrexate 2.5 MG Tab PO SCH (21:00)
[2017-07-15] MEDS: Albuterol/Ipratropium 3.0-0.5 MG/3 ML Neb Soln NEB SCH (21:01)
[2017-07-16] MEDS: Albuterol/Ipratropium 3.0-0.5 MG/3 ML Neb Soln NEB SCH ×4 (07:24→21:02)
[2017-07-16] MEDS: Formoterol/Mometasone 200-5 MCG 8.8 GM Inhaler IH SCH ×2 (07:24→21:02)
[2017-07-16] MEDS ORDERED: Iopamidol 612 MG/ML 100 ML Bottle IV PRN (08:55)
[2017-07-16] MEDS ORDERED: Sodium Chloride 0.9% 100 ML IV SCH (09:00)
[2017-07-16] MEDS ORDERED: Iohexol 300 MG/ML 30 ML Bottle PO ONE (09:10)
[2017-07-16] MEDS ORDERED: Morphine 2 MG/ML Syringe IVPUSH PRN (09:21)
[2017-07-16] MEDS: Benzonatate 100 MG Cap PO PRN ×2 (11:26→16:53)
[2017-07-16] MEDS: Ondansetron 4 MG Tab.DIS PO PRN (11:26)
[2017-07-16] MEDS: traMADol 50 MG Tab PO PRN ×2 (11:26→19:43)
[2017-07-16] MEDS: GLUC PO SCH (11:33)
[2017-07-16] MEDS: CA CARB PO SCH (11:33)
[2017-07-16] MEDS: MAG OX PO SCH (11:33)
[2017-07-16] MEDS: Pantoprazole 40 MG Tab.CR PO SCH ×2 (11:36→16:51)
[2017-07-16] MEDS: Metoprolol Tartrate 25 MG Tab PO SCH ×2 (11:37→21:04)
[2017-07-16] MEDS: Folic Acid 1 MG Tab PO SCH (11:37)
[2017-07-16] MEDS: Aspirin 81 MG Tab.EC PO SCH (11:37)
[2017-07-16] MEDS: Nitrofurantoin Monohydrate/Macrocrystalline 100 MG Cap PO SCH ×2 (11:38→21:03)
[2017-07-16] MEDS: Vitamin B Complex Tab PO SCH ×2 (11:38→11:44)
[2017-07-16] MEDS: Hydroxychloroquine 200 MG Tab PO SCH (11:38)
[2017-07-16] MEDS: Cholecalciferol (Vitamin D3) 1,000 Unit Tab PO SCH (11:38)
[2017-07-16] MEDS: Cefdinir 300 MG Cap PO SCH ×2 (11:38→21:04)
[2017-07-16] MEDS: Azithromycin 250 MG Tab PO SCH (11:38)
--- NOTE | 2017-07-16 12:18 | PCM.PN ---
- General Info Date of Service: 07/16/17 Functional Status: Reports: Pain Controlled, Tolerating Diet - Review of Systems Pulmonary: Reports: Cough (improving) Gastrointestinal: Reports: Abdominal Pain Systems Review Comment:: No acute events overnight but did have moderate abdominal pain this morning while she was nothing by mouth. No vomiting or diarrhea. Still requiring 1 L of supplemental oxygen but cough is better after starting on the Tessalon Perles. Feeling a little better after eating soup late this morning. She has not had any fevers. - Patient Data Vitals - Most Recent: Last Vital Signs Temp 36.7 C 07/16/17 11:14 Pulse 85 07/16/17 11:37 Resp 16 07/16/17 11:14 BP 105/67 07/16/17 11:37 Pulse Ox 100 07/16/17 11:14 Weight - Most Recent: 59.058 kg I&O - Last 24 Hours: Intake & Output 07/15/17 07/16/17 07/16/17 22:59 06:59 14:59 Intake Total 840 Output Total 450 950 600 Balance 390 -950 -600 Lab Results Last 24 Hours: Laboratory Results - last 24 hr 07/16/17 07/16/17 Range/Units 05:36 05:36 WBC 4.5 (4.5-11.0) K/uL RBC 4.27 (3.30-5.50) M/uL Hgb 12.5 (12.0-15.0) g/dL Hct 39.9 (36.0-48.0) % MCV 93 (80-98) fL MCH 29 (27-31) pg MCHC 31 L (32-36) % Plt Count 199 (150-400) K/uL Sodium 144 (140-148) mmol/L Potassium 3.7 (3.6-5.2) mmol/L Chloride 108 (100-108) mmol/L Carbon Dioxide 30 (21-32) mmol/L Anion Gap 5.8 (5.0-14.0) mmol/L BUN 6 L (7-18) mg/dL Creatinine 0.5 L (0.6-1.0) mg/dL Est Cr Clr Drug Dosing 76.28 mL/min Estimated GFR (MDRD) > 60 (>60) Glucose 89 (74-106) mg/dL Calcium 9.0 (8.5-10.1) mg/dL Med Orders - Current: Current Medications Acetaminophen (Tylenol) 650 mg PO Q4H PRN PRN Reason: Pain Last Admin: 07/15/17 20:57 Dose: 650 mg Albuterol (Proventil Neb Soln) 2.5 mg NEB Q4H PRN PRN Reason: Shortness of Breath Albuterol/Ipratropium (Duoneb 3.0-0.5 Mg/3 Ml) 3 ml NEB QIDRT [facility] Last Admin: 07/16/17 11:21 Dose: 3 ml Aspirin (Halfprin) 81 mg PO DAILY [facility] Last Admin: 07/16/17 11:37 Dose: 81 mg Azithromycin (Zithromax) 250 mg PO DAILY [facility] Stop: 07/17/17 09:01 Last Admin: 07/16/17 11:38 Dose: 250 mg Benzonatate (Tessalon Perles) 100 mg PO TID PRN PRN Reason: Cough Last Admin: 07/16/17 11:26 Dose: 100 mg Cefdinir (Omnicef) 300 mg PO BID [facility] Last Admin: 07/16/17 11:38 Dose: 300 mg Cholecalciferol (Vitamin D3) 3,000 units PO DAILY [facility] Last Admin: 07/16/17 11:38 Dose: 3,000 units Folic Acid (Folic Acid) 1 mg PO DAILY [facility] Last Admin: 07/16/17 11:37 Dose: 1 mg Guaifenesin/Codeine Phosphate (Robitussin Ac) 10 ml PO Q4H PRN PRN Reason: Cough Last Admin: 07/15/17 12:17 Dose: 10 ml Hydroxychloroquine Sulfate (Plaquenil) 400 mg PO DAILY [facility] Last Admin: 07/16/17 11:38 Dose: 400 mg Sodium Chloride (Normal Saline) 100 mls @ 3.5 mls/sec IV ASDIRECTED [facility] Last Admin: 07/16/17 11:02 Dose: 3 mls/sec Iopamidol (Isovue-300 (61%)) 100 ml IV . DIRECTED PRN PRN Reason: RADIOLOGY EXAM Stop: 07/17/17 08:56 Last Admin: 07/16/17 11:02 Dose: 88 ml Lorazepam (Ativan) 0.5 mg PO Q6H PRN PRN Reason: ANXIETY Last Admin: 07/15/17 20:58 Dose: 0.5 mg Methotrexate (Methotrexate) 20 mg PO Q7D@2100 [facility] Last Admin: 07/15/17 20:56 Dose: 20 mg Metoprolol Tartrate (Lopressor) 12.5 mg PO BID [facility] Last Admin: 07/16/17 11:37 Dose: 12.5 mg Mometasone Furoate/Formoterol Fumar (Dulera 200-5 Mcg) 2 puff IH BIDRT [facility] Last Admin: 07/16/17 07:24 Dose: 2 puff Morphine Sulfate (Morphine) 2 - 4 mg IVPUSH Q2H PRN PRN Reason: Pain Last Admin: 07/16/17 09:31 Dose: 2 mg Nitrofurantoin Macrocrystals (Macrobid) 100 mg PO BID [facility] Last Admin: 07/16/17 11:38 Dose: 100 mg (Ca Carb & Gluc/Mag Ox & Gluc [Calcium Magnesium Caplet] 1 1 tab PO DAILY [facility] Last Admin: 07/16/17 11:33 Dose: Not Given Ondansetron HCl (Zofran Odt) 4 mg PO Q4H PRN PRN Reason: Nausea Last Admin: 07/16/17 11:26 Dose: 4 mg Pantoprazole Sodium (Protonix) 40 mg PO BIDAC [facility] Last Admin: 07/16/17 11:36 Dose: 40 mg Sodium Chloride (Saline Flush) 10 ml FLUSH ASDIRECTED PRN PRN Reason: Keep Vein Open Last Admin: 07/12/17 22:49 Dose: 10 ml Tramadol HCl (Ultram) 50 mg PO Q8H PRN PRN Reason: Pain Last Admin: 07/16/17 11:26 Dose: 50 mg Discontinued Medications Acetaminophen (Tylenol) 650 mg PO NOW ONE Stop: 07/12/17 21:25 Last Admin: 07/12/17 21:41 Dose: 650 mg Albuterol (Proventil Neb Soln) 2.5 mg NEB ONETIME ONE Stop: 07/12/17 20:48 Last Admin: 07/12/17 20:59 Dose: 2.5 mg Albuterol/Ipratropium (Duoneb 3.0-0.5 Mg/3 Ml) 3 ml NEB Q4H PRN PRN Reason: shortness of breath Last Admin: 07/15/17 13:49 Dose: 3 ml Azithromycin (Zithromax) 500 mg PO DAILY [facility] Stop: 07/13/17 09:01 Last Admin: 07/13/17 08:54 Dose: 500 mg Fentanyl (Sublimaze) Confirm Administered Dose 100 mcg .ROUTE .STK-MED ONE Stop: 07/14/17 08:49 Sodium Chloride (Normal Saline) 1,000 mls @ 250 mls/hr IV ASDIRECTED [facility] Last Admin: 07/13/17 05:35 Dose: 250 mls/hr Sodium Chloride (Normal Saline) 80 mls @ 3 mls/sec IV ASDIRECTED [facility] Last Admin: 07/12/17 22:49 Dose: 3 mls/sec Levofloxacin/Dextrose 500 mg/ (Premix) 100 mls @ 100 mls/hr IV ONETIME ONE Stop: 07/13/17 01:19 Last Admin: 07/13/17 00:31 Dose: 100 mls/hr Ceftriaxone Sodium 1 gm/ (Sodium Chloride) 50 mls @ 100 mls/hr IV Q24H [facility] Last Admin: 07/15/17 02:27 Dose: 100 mls/hr Potassium Chloride 20 meq/Lidocaine HCl 2 ml/ Sodium Chloride 112 mls @ 56 mls/ hr IV Q2H [facility] Stop: 07/14/17 13:29 Last Admin: 07/14/17 13:55 Dose: 56 mls/hr Ibuprofen (Motrin) 400 mg PO ONETIME ONE Stop: 07/13/17 00:20 Last Admin: 07/13/17 00:29 Dose: 400 mg Influenza Virus Vaccine (Fluzone High-Dose ) 180 mcg IM .ONCE ONE Stop: 07/14/17 14:01 Last Admin: 07/14/17 18:09 Dose: 180 mcg Iohexol (Omnipaque) 20 ml PO ONETIME ONE Stop: 07/16/17 09:11 Last Admin: 07/16/17 09:28 Dose: 20 ml Iopamidol (Isovue-370 (76%)) 100 ml IV . DIRECTED [facility] Last Admin: 07/12/17 22:49 Dose: 100 ml Midazolam HCl (Versed 1 Mg/Ml) Confirm Administered Dose 2 mg .ROUTE .STK-MED ONE Stop: 07/14/17 08:49 Mometasone Furoate/Formoterol Fumar (Dulera 200-5 Mcg) 2 puff IH BIDRT [facility] Stop: 07/13/17 07:00 Mometasone Furoate/Formoterol Fumar (Dulera 200-5 Mcg) 2 puff IH BIDRT [facility] Non-Formulary Medication (Methotrexate Sodium [Methotrexate]) 20 mg PO Q7D [facility] Last Admin: 07/13/17 02:26 Dose: Not Given Pantoprazole Sodium (Protonix) 40 mg PO ACBREAKFAST [facility] Last Admin: 07/15/17 07:46 Dose: 40 mg Propofol (Diprivan 20 Ml) Confirm Administered Dose 200 mg .ROUTE .STK-MED ONE Stop: 07/14/17 08:49 Ranitidine HCl (Zantac) 300 mg PO DAILY [facility] Last Admin: 07/15/17 08:37 Dose: 300 mg Vitamin B Complex (Vitamin B Complex) 1 each PO DAILY [facility] Last Admin: 07/16/17 11:44 Dose: Not Given - Exam Quality Assessment: Supplemental Oxygen General: Alert, Oriented, Cooperative, No Acute Distress Neck: Supple Lungs: Normal Respiratory Effort GI/Abdominal Exam: Soft, Non-Tender, No Distention, No Mass Extremities: No Pedal Edema Skin: Warm, Dry Psy/Mental Status: Alert, Normal Affect - Problem List Review Problem List Initiated/Reviewed/Updated: Yes - My Orders Last 24 Hours: My Active Orders 07/15/17 14:14 Benzonatate [Tessalon Perles] 100 mg PO TID PRN 07/15/17 14:15 RT Aerosol Therapy [RC] ASDIRECTED Albuterol [Proventil Neb Soln] 2.5 mg NEB Q4H PRN 07/15/17 16:30 Pantoprazole [ProTONIX] 40 mg PO BIDAC 07/15/17 21:00 Cefdinir [Omnicef] 300 mg PO BID 07/15/17 22:00 Albuterol/Ipratropium [DuoNeb 3.0-0.5 MG/3 ML] 3 ml NEB QIDRT 07/16/17 07:00 Abdomen Pelvis w Cont [CT] Routine 07/16/17 08:55 Iopamidol [Isovue-300 (61%)] 100 ml IV . DIRECTED PRN 07/16/17 09:00 Sodium Chloride 0.9% [Normal Saline] 100 ml IV ASDIRECTED 07/16/17 09:21 Morphine 2 - 4 mg IVPUSH Q2H PRN 07/16/17 12:16 Ambulate [RC] QID - Plan Plan:: ASSESSMENT AND PLAN - Acute bronchitis - steadily improving. Cough is better today. -Continue azithromycin and cefdinir -Supplement oxygen as needed -Cough suppressant -Tessalon Perles Acute cystitis due to ESBL Escherichia coli - positive urine culture. -Continue nitrofurantoin -Contact precautions Generalized abdominal pain, postprandial - moderate pain this morning. CT was unremarkable. Cause of pain unclear at this time. -Pain control -Advance diet as tolerated -Continue PPI -Outpatient follow-up with Dr. Turner Rheumatoid arthritis - symptoms stable at this time and tolerating current medications. Maintenance issues - - DVT prophylaxis - SCDs - GI prophylaxis - PPI - Nutrition - soft diet Disposition - anticipate discharge to home after the hospital stay, hopefully tomorrow if stable overnight Eldon Grigsby M.D.
[2017-07-16] MEDS: Acetaminophen 325 MG Tab PO PRN ×3 (13:00→21:02)
[2017-07-16] MEDS: LORazepam 0.5 MG Tab PO PRN (21:02)
[2017-07-17] MEDS: Acetaminophen 325 MG Tab PO PRN ×2 (02:33→09:00)
[2017-07-17] MEDS: Benzonatate 100 MG Cap PO PRN ×2 (02:33→12:06)
[2017-07-17] MEDS: Pantoprazole 40 MG Tab.CR PO SCH (08:04)
[2017-07-17] MEDS: Formoterol/Mometasone 200-5 MCG 8.8 GM Inhaler IH SCH (08:10)
[2017-07-17] MEDS: Albuterol/Ipratropium 3.0-0.5 MG/3 ML Neb Soln NEB SCH ×2 (08:10→11:13)
[2017-07-17] MEDS: traMADol 50 MG Tab PO PRN (08:59)
[2017-07-17] MEDS: CA CARB PO SCH (09:28)
[2017-07-17] MEDS: GLUC PO SCH (09:28)
[2017-07-17] MEDS: MAG OX PO SCH (09:28)
[2017-07-17] MEDS: Folic Acid 1 MG Tab PO SCH (09:31)
[2017-07-17] MEDS: Metoprolol Tartrate 25 MG Tab PO SCH (09:31)
[2017-07-17] MEDS: Aspirin 81 MG Tab.EC PO SCH (09:31)
[2017-07-17] MEDS: Cefdinir 300 MG Cap PO SCH (09:32)
[2017-07-17] MEDS: Azithromycin 250 MG Tab PO SCH (09:32)
[2017-07-17] MEDS: Hydroxychloroquine 200 MG Tab PO SCH (09:32)
[2017-07-17] MEDS: Cholecalciferol (Vitamin D3) 1,000 Unit Tab PO SCH (09:32)
[2017-07-17] MEDS: Nitrofurantoin Monohydrate/Macrocrystalline 100 MG Cap PO SCH (09:32)
[2017-07-17 11:04] VITALS: BP 107/66
--- NOTE | 2017-07-17 12:06 | PCM.DCSUM1 ---
Discharge Summary - Hospital Course Brief History: 67-year-old female with history of rheumatoid arthritis on methotrexate who presented with cough, fever and shortness of breath. She is admitted for management of acute bronchitis as well as evaluation of elevated AST and ALT. - Discharge Data Discharge Date: 07/17/17 Discharge Disposition: Home, [facility] Condition: Good - Discharge Diagnosis/Problem(s) (1) Acute bronchitis SNOMED Code(s): 77362554 ICD Code: J20.9 - ACUTE BRONCHITIS, UNSPECIFIED Status: Acute Qualifiers: Bronchitis organism: unspecified organism Qualified Code(s): J20.9 - Acute bronchitis, unspecified (2) Acute cystitis with positive culture SNOMED Code(s): 129905111 ICD Code: N30.00 - ACUTE CYSTITIS WITHOUT HEMATURIA Status: Acute Problem Details: ESBL E coli (3) Epigastric abdominal pain SNOMED Code(s): 56767200 ICD Code: R10.13 - EPIGASTRIC PAIN Status: Acute (4) Rheumatoid arthritis SNOMED Code(s): 26164942 ICD Code: M06.9 - RHEUMATOID ARTHRITIS, UNSPECIFIED Status: Chronic Qualifiers: Rheumatoid arthritis location: multiple sites Rheumatoid factor presence: unspecified presence Qualified Code(s): M06.9 - Rheumatoid arthritis, unspecified (5) Bariatric surgery status SNOMED Code(s): 042130423, 497213607 ICD Code: Z98.84 - BARIATRIC SURGERY STATUS Status: Chronic - Patient Summary/Data Consults: Consultations 07/13/17 13:24 Consult to Physician [CONS] Routine Consulting Provider: Jasiel Quintana Call Completed to Consulting Physician: Yes Reason for Consult: possible stricture Person Notified: RW Date Notified: 07/13/17 Time Notified: 13:25 Special Instructions: EGD planned for morning Hospital Course: Svitlana presented to the emergency room with fever, cough and shortness of breath. Workup in the emergency room was suggestive of acute bronchitis with hypoxic respiratory failure as well as mild elevation of AST and ALT. She was admitted to the hospital for further management and workup. She was started on ceftriaxone and azithromycin for the bronchitis. She also received some nebulized therapies. Over the next couple of days for respiratory status improved and over the course of the hospital stay we have been able to wean her off her supplemental oxygen. She has tolerated her antibiotics well. The plan is for her to complete 2 additional days of antibiotic therapy for a total of 7 days. She has completed therapy with azithromycin by the time of discharge. We did not start her on steroids because she was not wheezing. She was interested in a prescription for nebulizer solution at the time of discharge and this was provided. She received significant cough relief from the Tessalon Perles. She will continue her usual home supplemental oxygen at bedtime. The mild elevation of AST and ALT were thought to be possibly related to a viral type infection. It was not entirely clear if the upper respiratory infection was viral or bacterial. The levels have trended down and have had not quite normalize but are close. She does not have a right upper quadrant pain. We elected not to perform any imaging with the fairly rapid improvement in the enzyme levels. A urine sample was obtained during the hospital stay and was suggestive of infection. Initially I thought the ceftriaxone would cover any infection but her urine culture returned with an Escherichia coli that was ESBL+. She was placed in contact precautions and antibiotics were changed to nitrofurantoin. She will receive 3 additional days for a total of 5 days of therapy. Also discussed during the hospital stay was some postprandial abdominal pain and early satiety. We performed an EGD which was entirely normal with no evidence for ulceration or gastritis. We performed a CT of the abdomen and pelvis which was also entirely normal. She does continue to have some pain, usually one to 2 hours after eating. The pain can be mild but at other times it can be moderately severe. 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 She has been able to tolerate her diet well and pain has been controlled fairly well with oral medications. She will be discharged home today with a slight increase in her anti-nausea medications as well as increased proton pump inhibitor dosing. She will follow- up with Dr. Turner in the next week or so to review the CT findings and discuss further treatment versus workup. - Patient Instructions Diet: Usual Diet as Tolerated Diet, Other: soft and bland foods, high protein Activity: As Tolerated Driving: Do Not Drive (if taking pain pills) Showering/Bathing: May Shower Notify Provider of: Fever, Increased Pain, Nausea and/or Vomiting Other/Special Instructions: 1. You were in the hospital for management of acute bronchitis as well as further evaluation of postprandial epigastric abdominal pain. -The bronchitis has been improving steadily with antibiotic therapy. I do recommend 5 more doses of antibiotics for the infection. You should take cefdinir 300 mg twice daily for 5 doses with your next dose due tonight. I would recommend that you use your nebulizer at least 3 times a day and then slowly taper down to once a day once your breathing has normalized. It could be beneficial to use your nebulizer every morning even after you continue to feel better. -The exact cause for your abdominal pain is not entirely clear but the CT scan and the EGD did not reveal concerning findings. 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 I would recommend that you follow- up with Dr. Turner and discuss other potential workup and management options if indicated. 2. I have placed a referral to home health care. They will help easier transition from the hospital to home. They will be providing nursing and physical therapy. 3. Please continue your other medications as previously prescribed. 4. Please seek medical attention if you develop fever greater than 101, have sudden worsening of your breathing or if you develop severe abdominal pain or persistent vomiting. - Discharge Plan Prescriptions/Med Rec: Albuterol Sulfate 3 ml INH QID #120 ml Benzonatate [Tessalon Perles] 100 mg PO TID PRN #30 cap PRN Reason: Cough Cefdinir [IJD: Cefdinir] 300 mg PO BID #5 capsule LORazepam [Ativan] 0.5 mg PO Q4H PRN #20 tablet PRN Reason: Anxiety Nitrofurantoin Monohyd/M-Cryst [Macrobid 100 mg Capsule] 100 mg PO BID #5 capsule Omeprazole 1 cap PO BIDAC #60 cap.cr Home Medications: Home Meds Folic Acid 1 mg PO DAILY 10/07/13 [History] Hydroxychloroquine [Plaquenil] 400 mg PO DAILY 10/07/13 [History] Methotrexate Sodium [Methotrexate] 20 mg PO Q7D 10/07/13 [History] Cholecalciferol (Vitamin D3) [Vitamin D3] 3,000 unit PO DAILY 02/06/14 [History] Ondansetron [Zofran ODT] 4 mg PO Q4HR PRN 02/06/14 [History] Cyanocobalamin (Vitamin B-12) [Vitamin B-12] 1,000 mcg SL DAILY 02/07/14 [ History] Multivitamin [Chewable Multi Vitamin] 2 tab PO DAILY 02/07/14 [History] Vitamin B Complex [Vitamin B-100 Complex] 1 each PO DAILY 02/07/14 [History] Aspirin [Adult Low Dose Aspirin EC] 81 mg PO DAILY 03/20/15 [History] Fluticasone/Salmeterol [Advair Diskus 500-50] 1 puff INH BID 09/11/16 [History] Metoprolol Tartrate 12.5 mg PO BID 09/12/16 [History] traMADol [Ultram] 50 - 100 mg PO Q6H PRN 09/30/16 [History] Ca Carb & Gluc/Mag Ox & Gluc [Calcium Magnesium Caplet] 1 tab PO DAILY 07/12/17 [History] Ranitidine [Zantac] 300 mg PO DAILY 07/12/17 [History] Albuterol Sulfate 3 ml INH QID #120 ml 07/17/17 [Rx] Benzonatate [Tessalon Perles] 100 mg PO TID PRN #30 cap 07/17/17 [Rx] Cefdinir [IJD: Cefdinir] 300 mg PO BID #5 capsule 07/17/17 [Rx] LORazepam [Ativan] 0.5 mg PO Q4H PRN #20 tablet 07/17/17 [Rx] Nitrofurantoin Monohyd/M-Cryst [Macrobid 100 mg Capsule] 100 mg PO BID #5 capsule 07/17/17 [Rx] Omeprazole 1 cap PO BIDAC #60 cap.cr 07/17/17 [Rx] Patient Handouts: Nitrofurantoin tablets or capsules, Cefdinir capsules, Acute Bronchitis, [id number], Urinary Tract Infection, Adult, Lorazepam tablets Forms: ED Department Discharge Referrals: Rhoda Morrison PA [Advanced RN Practitioner] - 07/25/17 11:30 am Toan Turner MD [Physician] - (1-2 weeks - follow-up hospital stay with postprandial abdominal pain) - Discharge Summary/Plan Comment DC Time >30 min.: Yes (40 - setting up home health care follow-up) - Patient Data Vitals - Most Recent: Last Vital Signs Temp 36.8 C 07/17/17 11:00 Pulse 78 07/17/17 11:14 Resp 18 07/17/17 11:00 BP 107/66 07/17/17 11:00 Pulse Ox 94 L 07/17/17 11:00 Weight - Most Recent: 59.058 kg I&O - Last 24 hours: Intake & Output 07/16/17 07/17/17 07/17/17 22:59 06:59 14:59 Intake Total 650 500 480 Output Total 800 450 700 Balance -150 50 -220 Med Orders - Current: Current Medications Acetaminophen (Tylenol) 650 mg PO Q4H PRN PRN Reason: Pain Last Admin: 07/17/17 09:00 Dose: 650 mg Albuterol (Proventil Neb Soln) 2.5 mg NEB Q4H PRN PRN Reason: Shortness of Breath Albuterol/Ipratropium (Duoneb 3.0-0.5 Mg/3 Ml) 3 ml NEB QIDRT [facility] Last Admin: 07/17/17 11:13 Dose: 3 ml Aspirin (Halfprin) 81 mg PO DAILY [facility] Last Admin: 07/17/17 09:31 Dose: 81 mg Benzonatate (Tessalon Perles) 100 mg PO TID PRN PRN Reason: Cough Last Admin: 07/17/17 02:33 Dose: 100 mg Cefdinir (Omnicef) 300 mg PO BID [facility] Last Admin: 07/17/17 09:32 Dose: 300 mg Cholecalciferol (Vitamin D3) 3,000 units PO DAILY [facility] Last Admin: 07/17/17 09:32 Dose: 3,000 units Folic Acid (Folic Acid) 1 mg PO DAILY [facility] Last Admin: 07/17/17 09:31 Dose: 1 mg Guaifenesin/Codeine Phosphate (Robitussin Ac) 10 ml PO Q4H PRN PRN Reason: Cough Last Admin: 07/15/17 12:17 Dose: 10 ml Hydroxychloroquine Sulfate (Plaquenil) 400 mg PO DAILY [facility] Last Admin: 07/17/17 09:32 Dose: 400 mg Sodium Chloride (Normal Saline) 100 mls @ 3.5 mls/sec IV ASDIRECTED [facility] Last Admin: 07/16/17 11:02 Dose: 3 mls/sec Lorazepam (Ativan) 0.5 mg PO Q6H PRN PRN Reason: ANXIETY Last Admin: 07/16/17 21:02 Dose: 0.5 mg Methotrexate (Methotrexate) 20 mg PO Q7D@2100 [facility] Last Admin: 07/15/17 20:56 Dose: 20 mg Metoprolol Tartrate (Lopressor) 12.5 mg PO BID [facility] Last Admin: 07/17/17 09:31 Dose: 12.5 mg Mometasone Furoate/Formoterol Fumar (Dulera 200-5 Mcg) 2 puff IH BIDRT [facility] Last Admin: 07/17/17 08:10 Dose: 2 puff Morphine Sulfate (Morphine) 2 - 4 mg IVPUSH Q2H PRN PRN Reason: Pain Last Admin: 07/16/17 09:31 Dose: 2 mg Nitrofurantoin Macrocrystals (Macrobid) 100 mg PO BID [facility] Last Admin: 07/17/17 09:32 Dose: 100 mg (Ca Carb & Gluc/Mag Ox & Gluc [Calcium Magnesium Caplet] 1 1 tab PO DAILY [facility] Last Admin: 07/17/17 09:28 Dose: Not Given Ondansetron HCl (Zofran Odt) 4 mg PO Q4H PRN PRN Reason: Nausea Last Admin: 07/16/17 11:26 Dose: 4 mg Pantoprazole Sodium (Protonix) 40 mg PO BIDAC [facility] Last Admin: 07/17/17 08:04 Dose: 40 mg Sodium Chloride (Saline Flush) 10 ml FLUSH ASDIRECTED PRN PRN Reason: Keep Vein Open Last Admin: 07/12/17 22:49 Dose: 10 ml Tramadol HCl (Ultram) 50 mg PO Q8H PRN PRN Reason: Pain Last Admin: 07/17/17 08:59 Dose: 50 mg Discontinued Medications Acetaminophen (Tylenol) 650 mg PO NOW ONE Stop: 07/12/17 21:25 Last Admin: 07/12/17 21:41 Dose: 650 mg Albuterol (Proventil Neb Soln) 2.5 mg NEB ONETIME ONE Stop: 07/12/17 20:48 Last Admin: 07/12/17 20:59 Dose: 2.5 mg Albuterol/Ipratropium (Duoneb 3.0-0.5 Mg/3 Ml) 3 ml NEB Q4H PRN PRN Reason: shortness of breath Last Admin: 07/15/17 13:49 Dose: 3 ml Azithromycin (Zithromax) 500 mg PO DAILY [facility] Stop: 07/13/17 09:01 Last Admin: 07/13/17 08:54 Dose: 500 mg Azithromycin (Zithromax) 250 mg PO DAILY [facility] Stop: 07/17/17 09:01 Last Admin: 07/17/17 09:32 Dose: 250 mg Fentanyl (Sublimaze) Confirm Administered Dose 100 mcg .ROUTE .STK-MED ONE Stop: 07/14/17 08:49 Sodium Chloride (Normal Saline) 1,000 mls @ 250 mls/hr IV ASDIRECTED [facility] Last Admin: 07/13/17 05:35 Dose: 250 mls/hr Sodium Chloride (Normal Saline) 80 mls @ 3 mls/sec IV ASDIRECTED [facility] Last Admin: 07/12/17 22:49 Dose: 3 mls/sec Levofloxacin/Dextrose 500 mg/ (Premix) 100 mls @ 100 mls/hr IV ONETIME ONE Stop: 07/13/17 01:19 Last Admin: 07/13/17 00:31 Dose: 100 mls/hr Ceftriaxone Sodium 1 gm/ (Sodium Chloride) 50 mls @ 100 mls/hr IV Q24H [facility] Last Admin: 07/15/17 02:27 Dose: 100 mls/hr Potassium Chloride 20 meq/Lidocaine HCl 2 ml/ Sodium Chloride 112 mls @ 56 mls/ hr IV Q2H [facility] Stop: 07/14/17 13:29 Last Admin: 07/14/17 13:55 Dose: 56 mls/hr Ibuprofen (Motrin) 400 mg PO ONETIME ONE Stop: 07/13/17 00:20 Last Admin: 07/13/17 00:29 Dose: 400 mg Influenza Virus Vaccine (Fluzone High-Dose 2016-18) 180 mcg IM .ONCE ONE Stop: 07/14/17 14:01 Last Admin: 07/14/17 18:09 Dose: 180 mcg Iohexol (Omnipaque) 20 ml PO ONETIME ONE Stop: 07/16/17 09:11 Last Admin: 07/16/17 09:28 Dose: 20 ml Iopamidol (Isovue-370 (76%)) 100 ml IV . DIRECTED [facility] Last Admin: 07/12/17 22:49 Dose: 100 ml Iopamidol (Isovue-300 (61%)) 100 ml IV . DIRECTED PRN PRN Reason: RADIOLOGY EXAM Stop: 07/17/17 08:56 Last Admin: 07/16/17 11:02 Dose: 88 ml Midazolam HCl (Versed 1 Mg/Ml) Confirm Administered Dose 2 mg .ROUTE .STK-MED ONE Stop: 07/14/17 08:49 Mometasone Furoate/Formoterol Fumar (Dulera 200-5 Mcg) 2 puff IH BIDRT [facility] Stop: 07/13/17 07:00 Mometasone Furoate/Formoterol Fumar (Dulera 200-5 Mcg) 2 puff IH BIDRT [facility] Non-Formulary Medication (Methotrexate Sodium [Methotrexate]) 20 mg PO Q7D [facility] Last Admin: 07/13/17 02:26 Dose: Not Given Pantoprazole Sodium (Protonix) 40 mg PO ACBREAKFAST [facility] Last Admin: 07/15/17 07:46 Dose: 40 mg Propofol (Diprivan 20 Ml) Confirm Administered Dose 200 mg .ROUTE .STK-MED ONE Stop: 07/14/17 08:49 Ranitidine HCl (Zantac) 300 mg PO DAILY [facility] Last Admin: 07/15/17 08:37 Dose: 300 mg Vitamin B Complex (Vitamin B Complex) 1 each PO DAILY [facility] Last Admin: 07/16/17 11:44 Dose: Not Given - Exam Quality Assessment: Denies: Supplemental Oxygen General: Reports: Alert, Oriented, Cooperative, No Acute Distress Neck: Reports: Supple Lungs: Reports: Normal Respiratory Effort GI/Abdominal Exam: No Distention Extremities: No Pedal Edema Psy/Mental Status: Reports: Alert, Normal Affect *Q Meaningful Use (DIS) - VTE *Q VTE Criteria *Q: - Stroke *Q Stroke Criteria *Q: - AMI *Q AMI Criteria *Q:
[2017-07-17] MEDS: Codeine/guaiFENesin 100mg-10 MG/5 ML Syrup 10 ML Cup PO PRN (12:47)
== END 2017-07-17 13:30 | disposition home health service (06) | DRG 202 ==
LOC: JP.ED 20:15 → JP.MS 07-13 00:05
PROVIDERS: ADMIT Family Medicine; ATTEND Internal Medicine
PROC: 0DJ08ZZ Inspection of Upper Intestinal Tract, Via Natural or Artificial Opening Endoscopic (ICD-10-PCS; principal; 2017-07-14)
DX: J20.9 Acute bronchitis, unspecified (principal); J96.01 Acute respiratory failure with hypoxia; J44.0 Chronic obstructive pulmonary disease with (acute) lower respiratory infection; J44.1 Chronic obstructive pulmonary disease with (acute) exacerbation; N30.00 Acute cystitis without hematuria; B96.20 Unspecified Escherichia coli [E. coli] as the cause of diseases classified elsewhere; M06.9 Rheumatoid arthritis, unspecified; E86.0 Dehydration; R06.02 Shortness of breath; R50.9 Fever, unspecified; R41.0 Disorientation, unspecified; Z99.81 Dependence on supplemental oxygen; I10 Essential (primary) hypertension; Z23 Encounter for immunization; R10.13 Epigastric pain; R68.81 Early satiety; D50.9 Iron deficiency anemia, unspecified; E55.9 Vitamin D deficiency, unspecified; F41.9 Anxiety disorder, unspecified; E53.8 Deficiency of other specified B group vitamins; M19.90 Unspecified osteoarthritis, unspecified site; M79.7 Fibromyalgia; Z98.84 Bariatric surgery status; Z98.0 Intestinal bypass and anastomosis status; H54.7 Unspecified visual loss; Z79.82 Long term (current) use of aspirin; Z88.5 Allergy status to narcotic agent; Z88.8 Allergy status to other drugs, medicaments and biological substances; R79.89 Other specified abnormal findings of blood chemistry
CPT/HCPCS: 36415; 36600; 70450; 71010 ×2; 71275; 80053; 81001; 82140; 82803; 83880; 85025; 85379; 86140; 87040 ×2; 87086; 87186; 87804 ×2; 94640; 96360; 96361; 99285; A9270; J7030; J7040; J7050; Q9967; 74177; 80048; 83605; 85027; 87088; 90662; 93005; 94664; G0008; J0696; J1956; J2250; J2270; J2704; J3010; J3480; J7620; J8610; Q9965

== ENCOUNTER 2017-11-28 18:26 | Emergency (ER) | payer MEDICARE, OTHER ==
[2017-11-28 18:30] VITALS: BP 122/63
[2017-11-28] MEDS ORDERED: Ketorolac 30 MG/ML SDV IVPUSH ONE (19:20)
--- NOTE | 2017-11-28 19:25 | EDM.PDOC ---
ED HPI GENERAL MEDICAL PROBLEM - General Chief Complaint: Lower Extremity Injury/Pain Stated Complaint: TWISTED HURT L KNEE Time Seen by Provider: 11/28/17 19:19 Source of Information: Reports: Patient, Family, RN Notes Reviewed History Limitations: Reports: No Limitations - History of Present Illness INITIAL COMMENTS - FREE TEXT/NARRATIVE: 67-year-old female presents emergency department today via EMS services for pain left knee pain, states he was opening a window twisted on the left knee her to popping now she is in excruciating pain Left Knee Pain Score (Numeric/FACES): 2 - Related Data Allergies Allergy/AdvReac Type Severity Reaction Status Date / Time cyclobenzaprine HCl AdvReac Abdominal Verified 07/12/17 20:46 [From Flexeril] Pain hydrocodone bitartrate AdvReac Abdominal Verified 07/12/17 20:46 [From Vicodin] Pain Home Meds: Home Meds Folic Acid 1 mg PO DAILY 10/07/13 [History] Hydroxychloroquine [Plaquenil] 400 mg PO DAILY 10/07/13 [History] Methotrexate Sodium [Methotrexate] 20 mg PO Q7D 10/07/13 [History] Cholecalciferol (Vitamin D3) [Vitamin D3] 3,000 unit PO DAILY 02/06/14 [History] Ondansetron [Zofran ODT] 4 mg PO Q4HR PRN 02/06/14 [History] Cyanocobalamin (Vitamin B-12) [Vitamin B-12] 1,000 mcg SL DAILY 02/07/14 [ History] Aspirin [Adult Low Dose Aspirin EC] 81 mg PO DAILY 03/20/15 [History] Metoprolol Tartrate 12.5 mg PO BID 09/12/16 [History] traMADol [Ultram] 50 - 100 mg PO Q6H PRN 09/30/16 [History] Ca Carb & Gluc/Mag Ox & Gluc [Calcium Magnesium Caplet] 1 tab PO DAILY 07/12/17 [History] Albuterol Sulfate 3 ml INH QID #120 ml 07/17/17 [Rx] LORazepam [Ativan] 0.5 mg PO Q4H PRN #20 tablet 07/17/17 [Rx] Omeprazole 1 cap PO BIDAC #60 cap.cr 07/17/17 [Rx] Alendronate Sodium [Fosamax] 70 mg PO WEEKLY 11/28/17 [History] Past Medical History HEENT History: Reports: Impaired Vision, Other (See Below) Other HEENT History: "hole in septum" Other Cardiovascular History: SVT. Wide complex tachycardia Respiratory History: Reports: Other (See Below) Other Respiratory History: Pt states she has a lung disease, celestial type disease? 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 compression fx of lumbar spine, non-traumatic Neurological History: Reports: Vertigo Psychiatric History: Reports: Anxiety, Panic Attack Other Psychiatric History: Major depressive disorder Endocrine/Metabolic History: Reports: Osteoporosis, Vitamin D Deficiency Hematologic History: Reports: Anemia, B12 Deficiency, Blood Transfusion(s), Iron Deficiency Dermatologic History: Reports: Other (See Below) Other Dermatologic History: skin lesion - Infectious Disease History Infectious Disease History: Reports: Chicken Pox, Extended Spectrum Beta- Lactamase (ESBL) Other Infectious Disease History: lymes disease - Past Surgical History Head Surgeries/Procedures: Reports: None Cardiovascular Surgical History: Reports: Cardiac Ablation, Other (See Below) GI Surgical History: Reports: Bariatric Procedure, Cholecystectomy, Colon, Colonoscopy, Hernia Repair/Other Other Female Surgeries/Procedures: bladder suspension Neurological Surgical History: Reports: None Musculoskeletal Surgical History: Reports: Carpal Tunnel Dermatological Surgical History: Reports: Skin Graft Social & Family History - Tobacco Use Smoking Status *Q: Never Smoker Second Hand Smoke Exposure: No - Caffeine Use Caffeine Use: Reports: Coffee - Alcohol Use Days Per Week of Alcohol Use: 0 - Recreational Drug Use Recreational Drug Use: No - Living Situation & Occupation Living situation: Reports: , with Family Occupation: Retired Review of Systems - Review of Systems Review Of Systems: See Below Constitutional: Reports: No Symptoms Musculoskeletal: Reports: Joint Pain (Left knee pain) Skin: Reports: No Symptoms Neurological: Reports: No Symptoms ED EXAM, GENERAL - Physical Exam Exam: See Below Free Text/Narrative:: Examination of left knee I don't appreciate any erythema there is no edema noted she is tender to palpation along both medial and lateral joint line will not tolerate any movement of the knee, pedal pulse is +2 Exam Limited By: No Limitations General Appearance: Alert, WD/WN, No Apparent Distress Respiratory/Chest: No Respiratory Distress Course - Vital Signs Last Recorded V/S: Last Vital Signs Temp 97.9 F 11/28/17 18:30 Pulse 75 11/28/17 18:30 Resp 17 11/28/17 18:30 BP 122/63 11/28/17 18:30 Pulse Ox 95 11/28/17 18:30 - Orders/Labs/Meds Orders: Active Orders 24 hr Category Date Time Status Knee 3V Lt [CR] Stat Exams 11/28/17 18:28 Taken Ketorolac [Toradol] Med 11/28/17 19:20 Once 30 mg IVPUSH ONETIME ONE DME for Discharge [COMM] Urgent Oth 11/28/17 19:20 Ordered Departure - Departure Time of Disposition: 19:24 Disposition: Home, Self-Care 01 Condition: Fair Clinical Impression: Left knee pain Qualifiers: Chronicity: acute Qualified Code(s): M25.562 - Pain in left knee - Discharge Information Referrals: Rhoda Morrison PA [Primary Care Provider] - Additional Instructions: Remainder knee immobilizer as needed for pain control, use hydrocodone for breakthrough pain, please call to the orthopedic clinic in the morning for an appointment time - My Orders Last 24 Hours: My Active Orders 11/28/17 18:28 Knee 3V Lt [CR] Stat 11/28/17 19:20 Ketorolac [Toradol] 30 mg IVPUSH ONETIME ONE DME for Discharge [COMM] Urgent - Assessment/Plan Last 24 Hours: My Active Orders 11/28/17 18:28 Knee 3V Lt [CR] Stat 11/28/17 19:20 Ketorolac [Toradol] 30 mg IVPUSH ONETIME ONE DME for Discharge [COMM] Urgent Plan: Assessment Acuity = acute Site and laterality = left knee sprain Etiology = secondary to twisting injury Manifestations = pain Location of injury = Home Lab values = knee x-ray I did review films myself I cannot appreciate any acute process, the official read from radiology is pending Plan I did review films with her, she had good pain relief combination of fentanyl and Toradol, discharged home with a knee immobilizer hydrocodone 5/325 one tab by mouth 3 times a day when necessary total #10 provided for pain control, consultation set up with orthopedics for this week This note was dictated using [employer] voice recognition software please call with any questions on syntax or emanuel.
--- NOTE | 2017-11-29 08:35 | CR ---
Knee 3V Lt HISTORY: twisting injury pain FINDINGS: Bony structures are diffusely osteopenic. No acute fracture or dislocation can be identified. Joint s paces are preserved. Soft tissues are unremarkable. No joint effusion is seen. Atherosclerotic vascu lar calcification is noted. IMPRESSION: Osteopenia. Atherosclerotic vascular calcification. No fracture or other acute left knee abnormality is identified.
== END 2017-11-28 20:15 | disposition home or self-care (01) ==
LOC: JP.ED 18:26
DX: M25.562 Pain in left knee (principal); Z88.5 Allergy status to narcotic agent; Z88.8 Allergy status to other drugs, medicaments and biological substances; Z79.899 Other long term (current) drug therapy; Z79.82 Long term (current) use of aspirin; X50.9XXA Other and unspecified overexertion or strenuous movements or postures, initial encounter
CPT/HCPCS: 73562; 96374; 99284; J1885

== ENCOUNTER 2018-02-15 12:19 | Emergency (ER) | payer MEDICARE, OTHER ==
[2018-02-15] MEDS ORDERED: Aspirin 81 MG Tab.Chew PO ONE (12:30)
--- NOTE | 2018-02-15 13:08 | CR ---
CHEST: Portable CLINICAL HISTORY:SOB COMPARISON:CT and portable chest from 2017 FINDINGS: Heart size and pulmonary vascularity are normal. There is mild generalized interstitial pr ominence similar to prior study. There is some fullness in the tanika bilaterally this is felt to be pu lmonary vessels. IMPRESSION: Chronic interstitial changes No acute cardiopulmonary process
[2018-02-15 13:31] VITALS: BP 123/76
--- NOTE | 2018-02-15 14:46 | EDM.PDOC ---
ED HPI GENERAL MEDICAL PROBLEM - General Chief Complaint: Cardiovascular Problem Stated Complaint: FROM [facility] Time Seen by Provider: 02/15/18 12:45 Source of Information: Reports: Patient History Limitations: Reports: No Limitations - History of Present Illness INITIAL COMMENTS - FREE TEXT/NARRATIVE: PT ARRIVED WITH CHEST PRESSURE AND DISCOMFOERT UP INTO THE NECK. sHE HAS BEEN DEALING WITH THIS FOR THE PAST 3-4 WEEKS. sHE HAS A HISTORY OF ALOT OF REFLUX. sHE DID NOT FEEL LIKE SHE HAD REFLUX THIS AM WHEN THE PAIN STARTED. sHE DID NOT GET SWEATY AND SHE DID NOT VOMIT. Onset: Today Duration: Day(s): Location: Reports: Chest Associated Symptoms: Reports: Chest Pain, Cough throat/chest Pain Score (Numeric/FACES): 4 - Related Data Allergies Allergy/AdvReac Type Severity Reaction Status Date / Time cyclobenzaprine HCl AdvReac Abdominal Verified 02/15/18 12:31 [From Flexeril] Pain hydrocodone bitartrate AdvReac Abdominal Verified 02/15/18 12:31 [From Vicodin] Pain Home Meds: Home Meds Folic Acid 1 mg PO DAILY 10/07/13 [History] Hydroxychloroquine [Plaquenil] 200 mg PO DAILY 10/07/13 [History] Methotrexate Sodium [Methotrexate] 20 mg PO Q7D 10/07/13 [History] Cholecalciferol (Vitamin D3) [Vitamin D3] 5,000 unit PO DAILY 02/06/14 [History] Ondansetron [Zofran ODT] 4 mg PO Q4HR PRN 02/06/14 [History] Cyanocobalamin (Vitamin B-12) [Vitamin B-12] 1,000 mcg SL DAILY 02/07/14 [ History] Aspirin [Adult Low Dose Aspirin EC] 81 mg PO DAILY 03/20/15 [History] Metoprolol Tartrate 12.5 mg PO BID 09/12/16 [History] traMADol [Ultram] 50 - 100 mg PO Q6H PRN 09/30/16 [History] Ca Carb & Gluc/Mag Ox & Gluc [Calcium Magnesium Caplet] 1 tab PO DAILY 07/12/17 [History] Albuterol Sulfate 3 ml INH QID #120 ml 07/17/17 [Rx] LORazepam [Ativan] 0.5 mg PO Q4H PRN #20 tablet 07/17/17 [Rx] Alendronate Sodium [Fosamax] 70 mg PO WEEKLY 11/28/17 [History] Omeprazole 1 cap PO BIDAC PRN 12/12/17 [History] busPIRone [Buspar] 10 mg PO BID 02/15/18 [History] Past Medical History HEENT History: Reports: Impaired Vision, Other (See Below) Other HEENT History: "hole in septum" Cardiovascular History: Reports: Arrhythmia, Other (See Below) Other Cardiovascular History: SVT. Wide complex tachycardia Respiratory History: Reports: Other (See Below) Other Respiratory History: Pt states she has a lung disease, intracelestial type disease? 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 compression fx of lumbar spine, non-traumatic. L knee pain Neurological History: Reports: Vertigo Psychiatric History: Reports: Anxiety, Panic Attack Other Psychiatric History: Major depressive disorder Endocrine/Metabolic History: Reports: Osteoporosis, Vitamin D Deficiency Hematologic History: Reports: Anemia, B12 Deficiency, Blood Transfusion(s), Iron Deficiency Immunologic History: Reports: None Oncologic (Cancer) History: Reports: None Dermatologic History: Reports: Other (See Below) Other Dermatologic History: skin lesion - Infectious Disease History Infectious Disease History: Reports: Chicken Pox, Extended Spectrum Beta- Lactamase (ESBL) Other Infectious Disease History: lymes disease - Past Surgical History Head Surgeries/Procedures: Reports: None Cardiovascular Surgical History: Reports: Cardiac Ablation GI Surgical History: Reports: Bariatric Procedure, Cholecystectomy, Colon, Colonoscopy, Hernia Repair/Other Other Female Surgeries/Procedures: bladder suspension Neurological Surgical History: Reports: None Musculoskeletal Surgical History: Reports: Carpal Tunnel Dermatological Surgical History: Reports: Skin Graft Social & Family History - Tobacco Use Smoking Status *Q: Never Smoker - Caffeine Use Caffeine Use: Reports: Coffee - Recreational Drug Use Recreational Drug Use: No - Living Situation & Occupation Living situation: Reports: , with Family Occupation: Retired ED ROS GENERAL - Review of Systems Review Of Systems: See Below HEENT: Reports: No Symptoms Respiratory: Reports: No Symptoms Cardiovascular: Reports: Chest Pain, Other (PAIN IN THE NECK AREA. ) Endocrine: Reports: No Symptoms GI/Abdominal: Reports: No Symptoms, Other ( HISYTORY OF GERD AND SHE HAS BEEN OFF HER MEDS FOR GERD. ) : Reports: No Symptoms Musculoskeletal: Reports: No Symptoms Skin: Reports: No Symptoms Neurological: Reports: No Symptoms ED EXAM, GENERAL - Physical Exam Exam: See Below Free Text/Narrative:: PT ARRIVED WITH CHEST PAIN AND PAIN INTO THE NECK. sHE DID NOT FEEL LIKE HER HEART WAS IRREGULAR. Exam Limited By: No Limitations General Appearance: Alert, Anxious, Mild Distress, Other (PUPILS ARE EQUAL AND REACTIVE. ) Ears: Normal TMs Nose: Normal Inspection Throat/Mouth: Normal Inspection Head: Atraumatic Neck: Normal Inspection Respiratory/Chest: No Respiratory Distress Cardiovascular: Regular Rate, Rhythm, Other (PT HAS HAD 2 ABLATIONS) GI/Abdominal: Soft, Non-Tender Rectal (Female) Exam: Deferred Back Exam: Normal Inspection Extremities: Normal Inspection Neurological: Alert, Oriented, Normal Cognition Psychiatric: Normal Affect Course - Vital Signs Last Recorded V/S: Last Vital Signs Temp 37.1 C 02/15/18 12:35 Pulse 77 02/15/18 13:31 Resp 14 02/15/18 13:31 BP 123/76 02/15/18 13:31 Pulse Ox 97 02/15/18 13:31 - Orders/Labs/Meds Orders: Active Orders 24 hr Category Date Time Status EKG Documentation Completion [RC] ASDIRECTED Care 02/15/18 12:29 Active UA W/MICROSCOPIC [URIN] Urgent Lab 02/15/18 12:41 Ordered EKG 12 Lead [EK] Routine Ther 02/15/18 12:29 Ordered Labs: Laboratory Tests 02/15/18 02/15/18 02/15/18 Range/Units 12:37 12:37 12:41 WBC 6.2 (4.5-11.0) K/uL RBC 4.41 (3.30-5.50) M/uL Hgb 13.2 (12.0-15.0) g/dL Hct 41.0 (36.0-48.0) % MCV 93 (80-98) fL MCH 30 (27-31) pg MCHC 32 (32-36) % Plt Count 314 (150-400) K/uL Neut % (Auto) 56 (36-66) % Lymph % (Auto) 28 (24-44) % [place] % (Auto) 10 H (2-6) % Eos % (Auto) 5 H (2-4) % Baso % (Auto) 1 (0-1) % Sodium 140 (140-148) mmol/L Potassium 3.6 (3.6-5.2) mmol/L Chloride 102 (100-108) mmol/L Carbon Dioxide 31 (21-32) mmol/L Anion Gap 7.1 (5.0-14.0) mmol/L BUN 17 D (7-18) mg/dL Creatinine 0.6 (0.6-1.0) mg/dL Est Cr Clr Drug Dosing 63.56 mL/min Estimated GFR (MDRD) > 60 (>60) Glucose 88 (74-106) mg/dL Calcium 8.9 (8.5-10.1) mg/dL Total Bilirubin 0.2 (0.2-1.0) mg/dL AST 26 D (15-37) U/L ALT 20 D (12-78) U/L Alkaline Phosphatase 87 (46-116) U/L Troponin I < 0.017 (0.000-0.056) ng/mL NT-Pro-B Natriuret Pep 69 (5-125) pg/mL Total Protein 7.3 (6.4-8.2) g/dL Albumin 3.3 L (3.4-5.0) g/dL Globulin 4.0 H (2.3-3.5) g/dL Albumin/Globulin Ratio 0.8 L (1.2-2.2) Urine Color Yellow Urine Appearance Clear Urine pH 6.0 (4.5-8.0) Ur Specific [place] 1.010 (1.008-1.030) Urine Protein Negative (NEGATIVE) mg/dL Urine Glucose (UA) Normal (NEGATIVE) mg/dL Urine Ketones Negative (NEGATIVE) mg/dL Urine Occult Blood Negative (NEGATIVE) Urine Nitrite Negative (NEGATIVE) Urine Bilirubin Negative (NEGATIVE) Urine Urobilinogen Normal (NORMAL) mg/dL Ur Leukocyte Esterase Negative (NEGATIVE) Urine RBC 0-5 (0-5) Urine WBC 0-5 (0-5) Ur Epithelial Cells Few Amorphous Sediment Not seen Urine Bacteria Few Urine Mucus Not seen Meds: Medications Discontinued Medications Generic Name Dose Route Start Last Admin Trade Name Freq PRN Reason Stop Dose Admin Aspirin 243 mg 02/15/18 12:30 02/15/18 13:12 Aspirin PO 02/15/18 12:31 243 mg ONETIME ONE Administration - Re-Assessments/Exams Free Text/Narrative Re-Assessment/Exam: 02/15/18 14:50 PT DID NOT HAVE ACUTE CHANGES ON HER EKG. hER TROP WAS NORMAL. tHE PRESSURE IS NO DIFFERENT THAN IT HAS BEEN FOR THE PAST 2 WEEKS. sHE LOOKS COMFORTABLE AT THIS TIME. sHE WAS GIVEN ASA 243 MG. sHE WAS GIVEN PROTONIX 40MG. Departure - Departure Time of Disposition: 14:53 Disposition: Home, Self-Care 01 Reason for Transfer *Q: Primary PCI Indicated Clinical Impression: Atypical chest pain, Chronic GERD, H/O cardiac radiofrequency ablation Referrals: Rhoda Morrison PA [Primary Care Provider] - Care Plan Goals: RTC FOR LEXISCAN, KEEP CARDIOLOGY APPT FOR TUESDAY, NEXUM 10MG 1-2 TABS DAILY-- HAS THESE AT HOME. - My Orders Last 24 Hours: My Active Orders 02/15/18 12:29 EKG Documentation Completion [RC] ASDIRECTED EKG 12 Lead [EK] Routine 02/15/18 12:41 UA W/MICROSCOPIC [URIN] Urgent - Assessment/Plan Last 24 Hours: My Active Orders 02/15/18 12:29 EKG Documentation Completion [RC] ASDIRECTED EKG 12 Lead [EK] Routine 02/15/18 12:41 UA W/MICROSCOPIC [URIN] Urgent
[2018-02-15] MEDS ORDERED: Famotidine 20 MG Tab PO ONE (14:52)
== END 2018-02-15 15:30 | disposition home or self-care (01) ==
LOC: JP.ED 12:19
DX: K21.9 Gastro-esophageal reflux disease without esophagitis (principal); R07.89 Other chest pain; Z88.8 Allergy status to other drugs, medicaments and biological substances; Z79.82 Long term (current) use of aspirin; Z79.899 Other long term (current) drug therapy; Z86.79 Personal history of other diseases of the circulatory system
CPT/HCPCS: 36415; 71045; 80053; 81001; 83880; 84484; 85025; 93005; 99284; A9270

== ENCOUNTER 2018-02-16 23:22 | Emergency (ER) | payer MEDICARE, OTHER ==
[2018-02-16 23:34] VITALS: BP 124/78
--- NOTE | 2018-02-17 01:09 | EDM.PDOC ---
ED HPI GENERAL MEDICAL PROBLEM - General Chief Complaint: Gastrointestinal Problem Stated Complaint: MEDICAL VIA AMBULANCE Time Seen by Provider: 02/16/18 23:56 Source of Information: Reports: Patient, Family History Limitations: Reports: No Limitations - History of Present Illness INITIAL COMMENTS - FREE TEXT/NARRATIVE: This lady was seen in the ER yesterday and received a cardiac workup for CP. Dx reflux. Scheduled for stress test tomorrow. Today about 3 pm had an episode of nausea and dry heaves and felt clammy. said she had chest pressure and pain went up lt arm. Pain comes and goes. Had a little here. PF now. Lasts up to 10 min - Related Data Allergies Allergy/AdvReac Type Severity Reaction Status Date / Time cyclobenzaprine HCl AdvReac Abdominal Verified 02/16/18 23:34 [From Flexeril] Pain hydrocodone bitartrate AdvReac Abdominal Verified 02/16/18 23:34 [From Vicodin] Pain Home Meds: Home Meds Folic Acid 1 mg PO DAILY 10/07/13 [History] Hydroxychloroquine [Plaquenil] 200 mg PO DAILY 10/07/13 [History] Methotrexate Sodium [Methotrexate] 20 mg PO Q7D 10/07/13 [History] Cholecalciferol (Vitamin D3) [Vitamin D3] 5,000 unit PO DAILY 02/06/14 [History] Ondansetron [Zofran ODT] 4 mg PO Q4HR PRN 02/06/14 [History] Cyanocobalamin (Vitamin B-12) [Vitamin B-12] 1,000 mcg SL DAILY 02/07/14 [ History] Aspirin [Adult Low Dose Aspirin EC] 81 mg PO DAILY 03/20/15 [History] Metoprolol Tartrate 12.5 mg PO BID 09/12/16 [History] traMADol [Ultram] 50 - 100 mg PO Q6H PRN 09/30/16 [History] Ca Carb & Gluc/Mag Ox & Gluc [Calcium Magnesium Caplet] 1 tab PO DAILY 07/12/17 [History] Albuterol Sulfate 3 ml INH QID #120 ml 07/17/17 [Rx] LORazepam [Ativan] 0.5 mg PO Q4H PRN #20 tablet 07/17/17 [Rx] Alendronate Sodium [Fosamax] 70 mg PO WEEKLY 11/28/17 [History] Omeprazole 1 cap PO BIDAC PRN 12/12/17 [History] busPIRone [Buspar] 10 mg PO BID 02/15/18 [History] busPIRone [Buspar] 10 mg PO BID 02/16/18 [History] Past Medical History HEENT History: Reports: Impaired Vision, Other (See Below) Other HEENT History: "hole in septum" Cardiovascular History: Reports: Arrhythmia, CAD, Other (See Below) Other Cardiovascular History: SVT. Wide complex tachycardia. Atypical chest pain Respiratory History: Reports: Pulmonary Fibrosis, Other (See Below) Other Respiratory History: Pt states she has a lung disease, intracelestial type disease? 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 compression fx of lumbar spine, non-traumatic. 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 Endocrine/Metabolic History: Reports: Osteoporosis, Vitamin D Deficiency Hematologic History: Reports: Anemia, B12 Deficiency, Blood Transfusion(s), Iron Deficiency Immunologic History: Reports: None Oncologic (Cancer) History: Reports: None Dermatologic History: Reports: Other (See Below) Other Dermatologic History: skin lesion - Infectious Disease History Infectious Disease History: Reports: Chicken Pox, Extended Spectrum Beta- Lactamase (ESBL) Other Infectious Disease History: lymes disease - Past Surgical History Head Surgeries/Procedures: Reports: None Cardiovascular Surgical History: Reports: Cardiac Ablation GI Surgical History: Reports: Bariatric Procedure, Cholecystectomy, Colon, Colonoscopy, Hernia Repair/Other Other Female Surgeries/Procedures: bladder suspension Neurological Surgical History: Reports: None Musculoskeletal Surgical History: Reports: Carpal Tunnel Dermatological Surgical History: Reports: Skin Graft Social & Family History - Tobacco Use Smoking Status *Q: Never Smoker - Caffeine Use Caffeine Use: Reports: Coffee - Recreational Drug Use Recreational Drug Use: No - Living Situation & Occupation Living situation: Reports: , with Family Occupation: Retired ED ROS GENERAL - Review of Systems Review Of Systems: ROS reveals no pertinent complaints other than HPI. ED EXAM, GI/ABD - Physical Exam Exam: See Below Exam Limited By: No Limitations General Appearance: Alert, WD/WN, No Apparent Distress Eyes: Bilateral: Normal Appearance Throat/Mouth: Normal Inspection Respiratory/Chest: Lungs Clear Cardiovascular: Regular Rate, Rhythm, No Murmur GI/Abdominal Exam: Non-Tender Extremities: Normal Inspection Neurological: Alert, Oriented Skin Exam: Warm, Dry Course - Vital Signs Last Recorded V/S: Last Vital Signs Temp 36.2 C 02/16/18 23:26 Pulse 77 02/16/18 23:26 Resp 16 02/16/18 23:26 BP 124/78 02/16/18 23:26 Pulse Ox 93 L 02/16/18 23:26 - Orders/Labs/Meds Orders: Active Orders 24 hr Category Date Time Status EKG Documentation Completion [RC] ASDIRECTED Care 02/17/18 00:09 Active EKG 12 Lead [EK] Urgent Ther 02/17/18 00:09 Ordered Labs: Laboratory Tests 02/17/18 Range/Units 00:18 Troponin I < 0.017 (0.000-0.056) ng/mL - Re-Assessments/Exams Free Text/Narrative Re-Assessment/Exam: 02/17/18 07:34 EKG showed NSR at 78, inferior infarct age undetermined. Nothing acute. Similar to yesterday. Troponin neg OK to have stress test tomorrow. Departure - Departure Time of Disposition: 01:07 Disposition: Home, Self-Care 01 Condition: Fair Clinical Impression: Chest pain - Discharge Information Instructions: Pharmacologic Stress Echocardiogram, [id number] Referrals: Rhoda Morrison PA [Primary Care Provider] - Forms: ED Department Discharge Additional Instructions: Your EKG looks OK and the blood test shows that you did not have a heart attack. You should be ok to take the stress test tomorrow. Return to the ER if Needed. - My Orders Last 24 Hours: My Active Orders 02/17/18 00:09 EKG Documentation Completion [RC] ASDIRECTED EKG 12 Lead [EK] Urgent - Assessment/Plan Last 24 Hours: My Active Orders 02/17/18 00:09 EKG Documentation Completion [RC] ASDIRECTED EKG 12 Lead [EK] Urgent
== END 2018-02-17 01:21 | disposition home or self-care (01) ==
LOC: JP.ED 23:22
DX: R07.9 Chest pain, unspecified (principal); I25.10 Atherosclerotic heart disease of native coronary artery without angina pectoris; F41.9 Anxiety disorder, unspecified; F32.9 Major depressive disorder, single episode, unspecified; Z88.8 Allergy status to other drugs, medicaments and biological substances; Z79.899 Other long term (current) drug therapy; Z79.82 Long term (current) use of aspirin; Z86.79 Personal history of other diseases of the circulatory system
CPT/HCPCS: 36415; 78452; 84484; 93005; 93017; 93018; 99283; 99284; A9500; J0280; J2785

== ENCOUNTER 2019-02-27 08:54 | Day surgery (SDC) | payer MEDICARE ==
[2019-02-27] MEDS ORDERED: Albuterol/Ipratropium 3.0-0.5 MG/3 ML Neb Soln NEB ONE (09:30)
[2019-02-27] MEDS ORDERED: Dextrose 5%-Lactated Ringers 1,000 ML IV SCH (09:30)
[2019-02-27 09:41] VITALS: BP 103/86; PULSE 60
[2019-02-27] MEDS ORDERED: fentaNYL 100 MCG/2 ML SDV ONE (10:01)
[2019-02-27] MEDS ORDERED: Propofol 200 MG/20 ML SDV ONE (10:01)
[2019-02-27] MEDS ORDERED: Furosemide 20 MG/2 ML VIAL IVPUSH ONE (10:45)
--- NOTE | 2019-02-27 11:21 | CRLCR ---
INDICATION: Right upper lung rales. TECHNIQUE: Chest 2 views COMPARISON: CT chest August 02, 2018 FINDINGS: Cardiovascular and mediastinum: Cardiomegaly is present. Normal pulmonary vasculature. Prominence of the ascending aorta is unchanged. Lungs and pleural spaces: No focal infiltrates or nodules. Stable peripheral interstitial fibrosis. Bones and soft tissues: Unchanged chronic thoracic spine compression fractures with kyphosis. IMPRESSION: Moderate interstitial fibrosis. No convincing evidence for acute pneumonia, pleural effusion, or other specific finding to explain right lung rales. Dictated by Ryan Carrion MD @ Feb 27 2019 11:14AM Signed by Dr. Ryan Carrion @ Feb 27 2019 11:21AM
[2019-02-27] MEDS ORDERED: Sodium Chloride 0.9% 10 ML Syringe FLUSH ONE (11:22)
[2019-02-27] MEDS ORDERED: Sodium Chloride 0.9% 80 ML IV ONE (11:22)
[2019-02-27] MEDS ORDERED: Iopamidol 612 MG/ML 100 ML Bottle IV SCH (11:30)
--- NOTE | 2019-02-27 13:29 | CRLCT ---
INDICATION: Shortness of breath. TECHNIQUE: CT chest PE was acquired with 75 cc Isovue-300 IV contrast. COMPARISON: 08/02/2018. FINDINGS: Heart and vasculature: Contrast opacification of the pulmonary arterial tree is adequate. No sign of pulmonary embolism. Moderate cardiomegaly. Great vessels are normal in caliber. Lungs and pleural: There is moderate pulmonary vascular congestion. There is also moderate peripheral interstitial fibrosis suspected. No focal infiltrate or suspicious nodule. No pleural effusions, pleural thickening, or pneumothorax. Lymph nodes/mediastinum: No mediastinal, hilar, or axillary adenopathy. Thyroid gland is normal. Chest wall: No masses. Upper abdomen: Normal. Bones: Multiple chronic appearing compression fractures in the thoracic spine with severe kyphosis. IMPRESSION: 1. No pulmonary embolism. 2. Cardiomegaly and moderate pulmonary vascular congestion suggesting CHF without overt edema. 3. Stable moderate interstitial pulmonary fibrosis. 4. No other acute or specific finding to explain shortness of breath. Please note that all CT scans at this facility use dose modulation, iterative reconstruction, and/or weight-based dosing when appropriate to reduce radiation dose to as low as reasonably achievable. Dictated by Ryan Carrion MD @ Feb 27 2019 1:12PM Signed by Dr. Ryan Carrion @ Feb 27 2019 1:27PM
--- NOTE | 2019-03-01 16:57 | PN ---
DATE OF SERVICE: 02/27/2019 The patient was going to be having an upper GI endoscopy today for evaluation of some upper abdominal discomfort as well as dysphagia. Her biggest problem appear to be having food getting caught, which appeared to be related to when she is not drinking much in the way of liquids. She is status post previous gastric bypass. The patient is presently on proton pump inhibitors. She did try Carafate, but was unable to get that down because of the large size of the pill. She has been eating some bland food over the last week and is actually doing quite a bit better on that. The upper endoscopy was canceled because the patient was obviously more short of breath than usual. She appeared to have quite a bit in the way of rales diffusely, particularly in the upper herzog. Chest x-ray was obtained, which showed the previously noted interstitial fibrosis. There was somewhat of a mass effect in the area just above the right mainstem bronchus, but a CT scan showed this to be interstitial fibrosis and not a mass per se. The CT reviewer did comment that she appeared to be more in heart failure than previously. The patient was given 20 mg of Lasix and will be set up to see LENA Gonzalez, in the next day or two regarding the cardiopulmonary situation, and she does have a Pulmonary Medicine consultation in early March. They will be instructed to reschedule the upper endoscopy should the symptoms recur despite and consciously taking more in the way of sips of liquids along with her meals. Toan Turner MD /[id number]
== END 2019-02-27 14:50 | disposition home or self-care (01) ==
LOC: JP.SDS 08:54
PROVIDERS: ATTEND Surgery
DX: R10.10 Upper abdominal pain, unspecified (principal); R13.10 Dysphagia, unspecified; I25.10 Atherosclerotic heart disease of native coronary artery without angina pectoris; J84.10 Pulmonary fibrosis, unspecified; K21.9 Gastro-esophageal reflux disease without esophagitis; F32.9 Major depressive disorder, single episode, unspecified; M06.9 Rheumatoid arthritis, unspecified; Z88.8 Allergy status to other drugs, medicaments and biological substances; Z98.84 Bariatric surgery status; Z53.09 Procedure and treatment not carried out because of other contraindication; Z79.899 Other long term (current) drug therapy
CPT/HCPCS: 36415; 71046; 71260; 80053; 83735; 83880; 84100; 85025; 94640; 99214; J1940; J7042; J2704; J3010

== ENCOUNTER 2019-03-30 07:44 | Day surgery (SDC) | payer MEDICARE ==
[2019-03-30] MEDS ORDERED: fentaNYL 100 MCG/2 ML SDV ONE (07:49)
[2019-03-30] MEDS ORDERED: Propofol 200 MG/20 ML SDV ONE (07:49)
[2019-03-30] MEDS ORDERED: Midazolam 1 MG/ML 2 ML SDV ONE (07:49)
[2019-03-30] MEDS ORDERED: Dextrose 5%-Lactated Ringers 1,000 ML IV SCH (09:00)
[2019-03-30] MEDS ORDERED: Dexamethasone 4 MG/ML SDV ONE (09:50)
[2019-03-30] MEDS ORDERED: Ondansetron 4 MG/2 ML SDV ONE (09:50)
[2019-03-30 11:14] VITALS: BP 109/69
[2019-03-31 17:07] LABS: H. PYLORI BREATH TEST Negative (Negative)
--- NOTE | 2019-04-04 14:52 | OR ---
DATE OF PROCEDURE: 03/30/2019 SURGEON: Toan Turner MD PREOPERATIVE DIAGNOSES: 1. Laryngopharyngeal dysphagia. 2. Epigastric discomfort. POSTOPERATIVE DIAGNOSES: 1. Laryngopharyngeal dysphagia. 2. Epigastric discomfort with otherwise only minimal inflammation of distal esophagus. OPERATIVE PROCEDURE: Upper gastrointestinal endoscopy. ANESTHESIA: IV sedation. INDICATION FOR PROCEDURE: This is a 68-year-old female presenting with some epigastric discomfort. She presently is on an acid-blocking treatment. The plan is to proceed with upper GI endoscopy with biopsies as indicated. Potential risks including bleeding and perforation were discussed, and the patient wishes to proceed. DETAILS OF PROCEDUE: The patient was taken to the operating room, placed in a left lateral decubitus position. IV sedation was administered, after which the upper GI endoscope was passed orally through the length of the esophagus into the gastric pouch and from there up to 20 cm into the Momo limb. The patient was noted to have no gross abnormalities within the larynx or pharynx or upper esophageal sphincter. The esophageal body was likewise unremarkable. As one passed in the distalmost esophagus, there was a very vague hint of some mild inflammation there. No ulcers or erosions were seen. No stricturing was identified. The gastric pouch and gastrojejunostomy Momo limb were otherwise fairly unremarkable. At this point, the scope was withdrawn and the procedure then concluded. At this point, the patient's symptoms are primarily epigastric discomfort, along with laryngopharyngeal dysphagia. With her discomfort being in the epigastrium, this was unlikely to be related to any reflux per se and may be related to some inflammation, i.e. gastritis, duodenitis, or ulcers in the bypassed portion of the stomach and duodenum. Given this, we will obtain H. pylori breath test. If it shows positive, it should be trialed and treated with one of the anti-H. pylori regimens. Otherwise, continue present acid blockade medication. The patient's laryngopharyngeal dysphagia appeared to be a separate process, and we will obtain an x-ray swallow study with Speech Pathology consultation to evaluate that issue. The patient will be following with Dr. Medina Tate in [facility] in two weeks. Toan Turner MD /[id number]
== END 2019-03-30 11:50 | disposition home or self-care (01) ==
LOC: JP.SDS 07:44
PROVIDERS: ATTEND Surgery
DX: R10.13 Epigastric pain (principal); K20.9 Esophagitis, unspecified; K21.9 Gastro-esophageal reflux disease without esophagitis; I25.10 Atherosclerotic heart disease of native coronary artery without angina pectoris; F32.9 Major depressive disorder, single episode, unspecified; Z98.84 Bariatric surgery status
CPT/HCPCS: 43235; 83013; J1100; J2250; J2405; J2704; J3010

== ENCOUNTER 2021-03-12 06:47 | Emergency (ER) | payer MEDICARE ==
--- NOTE | 2021-03-12 07:03 | EDM.PDOC ---
ED HPI GENERAL MEDICAL PROBLEM - General Chief Complaint: Respiratory Problem Stated Complaint: chovid positive Time Seen by Provider: 03/12/21 06:52 Source of Information: Reports: Patient, RN Notes Reviewed - History of Present Illness INITIAL COMMENTS - FREE TEXT/NARRATIVE: 70-year-old female with a history of pulmonary fibrosis and multiple comorbidities is sent in by family because the relative was here yesterday with Covid symptoms and tested positive for Covid. She has not tested positive up to this point apparently. She has no complaints and says she did not want to come and feels that is fine as she usually does. She is thirsty would like a drink of water. She has no smell or taste changes. No increase shortness of breath. No body pain or headaches. No increased cough. Denies any other system problems that are acute in nature at the moment. - Related Data Allergies Allergy/AdvReac Type Severity Reaction Status Date / Time hydrocodone Allergy Abdominal Verified 03/11/21 13:07 Pain cyclobenzaprine HCl AdvReac Abdominal Verified 03/12/21 07:45 [From Flexeril] Pain Home Meds: Home Meds Folic Acid 1 mg PO DAILY 10/07/13 [History] Hydroxychloroquine [Plaquenil] 200 mg PO DAILY 10/07/13 [History] Methotrexate Sodium [Methotrexate] 20 mg PO Q7D 10/07/13 [History] Cholecalciferol (Vitamin D3) [Vitamin D3] 5,000 unit PO DAILY 02/06/14 [History] Ondansetron [Zofran ODT] 4 mg PO Q4HR PRN 02/06/14 [History] Cyanocobalamin (Vitamin B-12) [Vitamin B-12] 1,000 mcg SL DAILY 02/07/14 [Histo ry] Aspirin [Adult Low Dose Aspirin EC] 81 mg PO DAILY 03/20/15 [History] Metoprolol Tartrate 12.5 mg PO BID 09/12/16 [History] traMADol [Ultram] 100 mg PO Q6H PRN 09/30/16 [History] Albuterol Sulfate 3 ml INH QID PRN 02/17/18 [History] Cetirizine [ZyrTEC] 10 mg PO DAILY 02/22/19 [History] Montelukast Sodium [Singulair] 10 mg PO BEDTIME 02/22/19 [History] Multivitamin with Iron [Chewable-Chase with Iron] 1 tab PO DAILY 02/22/19 [History] Pantoprazole Sodium [Protonix] 40 mg PO BID 02/22/19 [History] Fluticasone Propionate [Flonase] 2 spray NASBOTH DAILY 03/28/19 [History] Furosemide 20 mg PO DAILY 03/28/19 [History] LORazepam 0.5 mg PO DAILY PRN 03/28/19 [History] Vitamin B6-pyridOXINE 50 mg PO DAILY 03/28/19 [History] Gabapentin [Neurontin] 300 mg PO BEDTIME 10/21/20 [History] Sucralfate 1 gm PO QID 10/21/20 [History] Thiamine [Vitamin B-1] 100 mg PO DAILY 10/21/20 [History] Doxepin HCl [Doxepin] 10 mg PO BEDTIME 03/11/21 [History] Ipratropium [Atrovent 0.06% Nasal [place]] 2 spray JOSEP TID PRN 03/11/21 [History] Tiotropium Br/Olodaterol HCl [Stiolto Respimat Inhal [place]] 2 puff INH DAILY 03/11/21 [History] Past Medical History HEENT History: Reports: Allergic Rhinitis, Cataract, Impaired Vision, Other (See Below) Other HEENT History: "hole in septum" Cardiovascular History: Reports: Arrhythmia, CAD, Other (See Below) Other Cardiovascular History: SVT. Wide complex tachycardia. Atypical chest pain Respiratory History: Reports: Pulmonary Fibrosis, Other (See Below) Other Respiratory History: Pt states she has a lung disease, interstitual type disease? Gastrointestinal History: Reports: Bowel Obstruction, Cholelithiasis, Chronic Constipation Genitourinary History: Reports: None [employer] History: Reports: Musculoskeletal History: Reports: Arthritis, Fracture, Fibromyalgia, Osteoarthritis, Osteoporosis, RA Other Musculoskeletal History: Chronic pain of multiple joints. compression fx of lumbar spine, non-traumatic. 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 Endocrine/Metabolic History: Reports: Osteoporosis, Vitamin D Deficiency Hematologic History: Reports: Anemia, B12 Deficiency, Blood Transfusion(s), Iron Deficiency Immunologic History: Reports: None Oncologic (Cancer) History: Reports: None Dermatologic History: Reports: Other (See Below) Other Dermatologic History: skin lesion - Infectious Disease History Infectious Disease History: Reports: Measles, Mumps Other Infectious Disease History: lymes disease - Past Surgical History Head Surgeries/Procedures: Reports: None Cardiovascular Surgical History: Reports: Cardiac Ablation Respiratory Surgical History: Reports: None GI Surgical History: Reports: Appendectomy, Bariatric Procedure, Cholecystectomy, Colon, Colonoscopy, EGD, Hernia Repair/Other Female Surgical History: Reports: Hysterectomy Other Female Surgeries/Procedures: bladder suspension Endocrine Surgical History: Reports: None Neurological Surgical History: Reports: None Musculoskeletal Surgical History: Reports: Carpal Tunnel Dermatological Surgical History: Reports: Skin Graft Social & Family History - Family History Family Medical History: No Pertinent Family History - Caffeine Use Caffeine Use: Reports: Coffee - Living Situation & Occupation Living situation: Reports: , with Family Occupation: Retired ED ROS GENERAL - Review of Systems Review Of Systems: Comprehensive ROS is negative, except as noted in HPI. ED EXAM, GENERAL - Physical Exam Exam: See Below Free Text/Narrative:: Alert cooperative elderly female sitting on the gurney with a gown and mask appearing to be in no real distress with vital signs with a blood pressure that is 128 over about 680, pulse ox in the 90s on 2 L which she normally lives on at home and a rate of about 80 or 90. HEENT shows eyes ears nose and throat appear to be normal with exception of a bit of a dry tongue. Neck is supple no JVD Chest has diffuse rales bilaterally but I do not know if that is normal for her because of her pulmonary fibrosis or not. Regular rate and rhythm is noted Abdomen is soft nontender no masses noted Extremities without edema or deformity Skin inspection palpation is normal Neurologic she has no focal deficits moves extremities Exam Limited By: No Limitations Course - Vital Signs Text/Narrative:: We will do a test for Covid plus a D-dimer looking for evidence of delta variant venous gas and a comprehensive panel for baseline study and a chest x-ray Chest x-ray shows evidence of COPD with relatively poor inspiration with the picture somewhat similar to that of February 2018 D-dimer is positive. Slightly elevated D-dimer may be normal adjusted for age No other notable changes on chemistries. Patient is eligible to receive antiviral therapy and it is ordered. She will be following up with her physician and be isolating at home with family who are apparently also positive Last Recorded V/S: Last Vital Signs Temp 38.6 C H 03/12/21 08:52 Pulse 89 03/12/21 08:52 Resp 17 03/12/21 08:52 BP 121/76 03/12/21 08:52 Pulse Ox 97 03/12/21 08:52 - Orders/Labs/Meds Orders: Active Orders 24 hr Category Date Time Status Chest 1V Frontal [CR] Stat Exams 03/12/21 07:46 Taken Isolation [COMM] Stat Oth 03/12/21 07:47 Ordered Labs: Laboratory Tests 03/12/21 03/12/21 03/12/21 Range/Units 08:03 08:11 08:11 WBC (4.5-11.0) K/uL RBC (3.30-5.50) M/uL Hgb (12.0-15.0) g/dL Hct (36.0-48.0) % MCV (80-98) fL MCH (27-31) pg MCHC (32-36) % Plt Count (150-400) K/uL D-Dimer, Quantitative 1006.80 H (0.0-500.0) ng/mL ABG Hemoglobin 13.3 (12.0-16.0) g/dL ABG Oxyhemoglobin 88.1 % ABG Carboxyhemoglobin 2.7 H (0.0-1.6) % ABG Methemoglobin 0.8 % VBG pH 7.406 (7.350-7.450) VBG pCO2 54.9 mm/Hg VBG pO2 60.8 mm/Hg VBG HCO3 33.8 mmol/L VBG Total CO2 30.0 mmol/L VBG O2 Saturation 91.3 VBG O2 Content 16.5 %vol VBG Base Excess 7.8 mm/L O2 Delivery Device Nasal cannula Sodium (140-148) mmol/L Potassium (3.6-5.2) mmol/L Chloride (100-108) mmol/L Carbon Dioxide (21-32) mmol/L Anion Gap (5.0-14.0) mmol/L BUN (7-18) mg/dL Creatinine (0.6-1.0) mg/dL Est Cr Clr Drug Dosing mL/min Estimated GFR (MDRD) (>60) Glucose (74-106) mg/dL Calcium (8.5-10.1) mg/dL Ferritin (8-388) ng/ml Total Bilirubin (0.2-1.0) mg/dL AST (15-37) U/L ALT (12-78) U/L Alkaline Phosphatase (46-116) U/L C-Reactive Protein (0.0-0.3) mg/dL Total Protein (6.4-8.2) g/dL Albumin (3.4-5.0) g/dL Globulin (2.3-3.5) g/dL Albumin/Globulin Ratio (1.2-2.2) Influenza Type A RNA Negative (NEGATIVE) RSV RNA (INAAT) Negative (NEGATIVE) Influenza Type B RNA Negative (NEGATIVE) SARS-CoV-2 RNA (KELLEY) Positive H (NEGATIVE) 03/12/21 03/12/21 Range/Units 08:11 08:11 WBC 3.0 L (4.5-11.0) K/uL RBC 4.34 (3.30-5.50) M/uL Hgb 12.7 (12.0-15.0) g/dL Hct 40.3 (36.0-48.0) % MCV 93 (80-98) fL MCH 29 (27-31) pg MCHC 32 (32-36) % Plt Count 141 L (150-400) K/uL D-Dimer, Quantitative (0.0-500.0) ng/mL ABG Hemoglobin (12.0-16.0) g/dL ABG Oxyhemoglobin % ABG Carboxyhemoglobin (0.0-1.6) % ABG Methemoglobin % VBG pH (7.350-7.450) VBG pCO2 mm/Hg VBG pO2 mm/Hg VBG HCO3 mmol/L VBG Total CO2 mmol/L VBG O2 Saturation VBG O2 Content %vol VBG Base Excess mm/L O2 Delivery Device Sodium 139 L (140-148) mmol/L Potassium 3.5 L (3.6-5.2) mmol/L Chloride 98 L (100-108) mmol/L Carbon Dioxide 35 H (21-32) mmol/L Anion Gap 9.5 (5.0-14.0) mmol/L BUN 9 (7-18) mg/dL Creatinine 0.6 (0.6-1.0) mg/dL Est Cr Clr Drug Dosing 60.88 mL/min Estimated GFR (MDRD) > 60 (>60) Glucose 100 (74-106) mg/dL Calcium 8.1 L (8.5-10.1) mg/dL Ferritin 313 (8-388) ng/ml Total Bilirubin 0.1 L (0.2-1.0) mg/dL AST 47 H (15-37) U/L ALT 21 (12-78) U/L Alkaline Phosphatase 56 (46-116) U/L C-Reactive Protein 1.47 H (0.0-0.3) mg/dL Total Protein 6.7 (6.4-8.2) g/dL Albumin 3.0 L (3.4-5.0) g/dL Globulin 3.7 H (2.3-3.5) g/dL Albumin/Globulin Ratio 0.8 L (1.2-2.2) Influenza Type A RNA (NEGATIVE) RSV RNA (INAAT) (NEGATIVE) Influenza Type B RNA (NEGATIVE) SARS-CoV-2 RNA (K[facility]) (NEGATIVE) Departure - Departure Time of Disposition: 09:30 Disposition: Home, Self-Care 01 Clinical Impression: COVID, COPD (chronic obstructive pulmonary disease) - Discharge Information Referrals: PCP,None [Primary Care Provider] - Forms: ED Department Discharge Additional Instructions: Follow-up with your physician and return here for new or worse symptoms and isolate at home Sepsis Event Note (ED) - Focused Exam Vital Signs: Vital Signs Temp Pulse Resp BP Pulse Ox 03/12/21 08:52 38.6 C H 89 17 121/76 97 03/12/21 07:13 38.6 C H 89 17 121/76 97 - My Orders Last 24 Hours: My Active Orders 03/12/21 07:46 Chest 1V Frontal [CR] Stat 03/12/21 07:47 Isolation [COMM] Stat - Assessment/Plan Last 24 Hours: My Active Orders 03/12/21 07:46 Chest 1V Frontal [CR] Stat 03/12/21 07:47 Isolation [COMM] Stat
[2021-03-12 08:48] LABS: CORONAVIRUS COVID-19 NAA POSITIVE (NEGATIVE)
[2021-03-12] MEDS ORDERED: Sodium Chloride 0.9% 1,000 ML IV SCH (09:45)
[2021-03-12] MEDS ORDERED: diphenhydrAMINE 50 MG/ML SDV IVPUSH PRN (10:15)
[2021-03-12] MEDS ORDERED: methylPREDNISolone Sodium Succinate 125 MG/2 ML SDV IVPUSH PRN (10:15)
[2021-03-12] MEDS ORDERED: CASIRIVIMAB/IMDEVIMAB 10 ML in Sodium Chloride 0.9% 150 ML IV ONE (10:15)
[2021-03-12] MEDS ORDERED: Famotidine 20 MG/2 ML SDV IV PRN (10:15)
[2021-03-12] MEDS ORDERED: EPINEPHrine 1 MG/ML SDV IM PRN (10:15)
[2021-03-12] MEDS ORDERED: Acetaminophen 325 MG Tab PO PRN (10:15)
[2021-03-12 12:20] VITALS: BP 125/78; PULSE 80
--- NOTE | 2021-03-13 09:26 | CR ---
CHEST: Portable 03/12/2021 at 8:22 AM CLINICAL HISTORY:Pain COMPARISON:CT chest April 2020 FINDINGS: There is less than optimal inspiration. There is some chronic pleural parenchymal scarring and fibrosis in the right upper lobe. There is also some scarring in the left lower lobe. There are atherosclerotic changes in the aorta. IMPRESSION: Poor inspiratory level exaggerates lung markings Pleural parenchymal scarring in the right upper lobe and left lower lobe. Upright two-view chest would be helpful when patient's condition allows
== END 2021-03-12 14:21 | disposition home or self-care (01) ==
LOC: JP.ED 06:47
DX: U07.1 COVID-19 (principal); J44.9 Chronic obstructive pulmonary disease, unspecified; I25.10 Atherosclerotic heart disease of native coronary artery without angina pectoris; Z79.82 Long term (current) use of aspirin; Z79.899 Other long term (current) drug therapy; Z88.5 Allergy status to narcotic agent; Z88.8 Allergy status to other drugs, medicaments and biological substances
CPT/HCPCS: 0241U; 36415; 71045; 80053; 82728; 82803; 85027; 85379; 86140; 99283; J7030; M0243; Q0243

== ENCOUNTER 2021-05-25 06:17 | Day surgery (SDC) | payer MEDICARE ==
[2021-05-25] MEDS ORDERED: Dextrose 5%-Lactated Ringers 1,000 ML IV SCH (07:00)
[2021-05-25] MEDS ORDERED: Propofol 200 MG/20 ML SDV ONE (07:27)
[2021-05-25] MEDS ORDERED: Ondansetron 4 MG/2 ML SDV ONE (07:27)
[2021-05-25] MEDS ORDERED: Dexamethasone 4 MG/ML SDV ONE (07:27)
[2021-05-25] MEDS ORDERED: Scopolamine 1.5 MG Transdermal Patch TOP SCH (07:30)
[2021-05-25] MEDS ORDERED: Fluconazole/Normal Saline 400 MG in Premix Bag 200 BAG IV ONE (09:15)
[2021-05-25] MEDS ORDERED: Fluconazole/Normal Saline 400 MG in Premix Bag 1 BAG IV ONE (09:15)
[2021-05-25 11:32] VITALS: BP 129/77; PULSE 73
--- NOTE | 2021-05-28 00:12 | OR ---
DATE OF PROCEDURE: 05/25/2021 SURGEON: Toan Turner MD PREOPERATIVE DIAGNOSIS: Epigastric discomfort. 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 PROCEDURE PERFORMED: Upper gastrointestinal endoscopy. ANESTHESIA: IV sedation. INDICATIONS FOR PROCEDURE: This is a 70-year-old female status post Momo-en-Y gastric bypass, presenting with worsening epigastric discomfort and some heartburn-type symptoms. She presently is on a combination of Protonix and Carafate. The plan is to proceed with upper GI endoscopy with biopsies as indicated. Potential risks including bleeding and perforation were discussed, and the patient wishes to proceed. PROCEDURE IN DETAIL: The patient was taken to the operating room and placed in a left lateral decubitus position. IV sedation was administered after which the upper GI endoscope was passed orally through the length of the esophagus through the gastric pouch and gastrojejunostomy, roughly 20 cm into the Momo limb. The patient had a striking fungal overgrowth beginning in the proximal esophagus and becoming essentially confluent as one passed further down into the distal esophagus and slightly onto the gastric pouch. There was no stricturing or bleeding noted, but this was extremely dense fungal overgrowth likely accounting for the patient's symptoms. The endoscopy otherwise was normal, and the scope was then withdrawn. The patient will be given some IV Diflucan in the ACU postoperatively and then begun on Mycostatin swish and swallow 5 mL q.i.d. x7 days, and she will be scheduled for followup with Sol Bhakta in 2 to 3 weeks. Toan Turner MD /[id number]
== END 2021-05-25 12:32 | disposition home or self-care (01) ==
LOC: JP.SDS 06:17
PROVIDERS: ATTEND Surgery
DX: R10.13 Epigastric pain (principal); B37.81 Candidal esophagitis; I25.10 Atherosclerotic heart disease of native coronary artery without angina pectoris; K21.9 Gastro-esophageal reflux disease without esophagitis
CPT/HCPCS: 44385; A9270; J1100; J1450; J2405; J2704; J7121

== ENCOUNTER 2022-08-16 20:40 | Emergency (ER) | payer MEDICARE ==
[2022-08-16 21:59] VITALS: BP 127/87; PULSE 76
== END 2022-08-16 23:06 | disposition home or self-care (01) ==
LOC: JP.ED 20:40
DX: S93.601A Unspecified sprain of right foot, initial encounter (principal); I25.10 Atherosclerotic heart disease of native coronary artery without angina pectoris; Z88.5 Allergy status to narcotic agent; Z88.8 Allergy status to other drugs, medicaments and biological substances; Z79.82 Long term (current) use of aspirin; X50.1XXA Overexertion from prolonged static or awkward postures, initial encounter
CPT/HCPCS: 73562-RT; 73630-RT; 99282; 99284

== ENCOUNTER 2022-08-20 09:00 | Emergency (ER) | payer MEDICARE ==
[2022-08-20] MEDS ORDERED: Sodium Chloride 0.9% 10 ML Syringe FLUSH PRN (09:07)
[2022-08-20] MEDS ORDERED: Morphine 2 MG/ML SYRINGE IVPUSH ONE (09:07)
[2022-08-20 09:08] VITALS: BP 140/75; PULSE 78
[2022-08-20] MEDS ORDERED: Ketorolac 30 MG/ML SDV IVPUSH ONE (09:56)
[2022-08-20] MEDS ORDERED: Glycerin 2.1 GM Supp RECTAL ONE (09:58)
[2022-08-20] MEDS ORDERED: Doxycycline 100 MG Cap PO ONE (11:04)
[2022-08-20] MEDS ORDERED: Acetaminophen 500 MG Tab PO ONE (13:08)
== END 2022-08-20 14:30 ==
LOC: JP.ED 09:00
DX: S90.01XA Contusion of right ankle, initial encounter (principal); R07.81 Pleurodynia; M81.0 Age-related osteoporosis without current pathological fracture; J18.9 Pneumonia, unspecified organism; I50.9 Heart failure, unspecified; J84.10 Pulmonary fibrosis, unspecified; I28.8 Other diseases of pulmonary vessels; J96.11 Chronic respiratory failure with hypoxia; I25.10 Atherosclerotic heart disease of native coronary artery without angina pectoris; D64.9 Anemia, unspecified; Z88.5 Allergy status to narcotic agent; Z88.8 Allergy status to other drugs, medicaments and biological substances; Z79.82 Long term (current) use of aspirin; Z79.899 Other long term (current) drug therapy; W01.0XXA Fall on same level from slipping, tripping and stumbling without subsequent striking against object, initial encounter; Y92.009 Unspecified place in unspecified non-institutional (private) residence as the place of occurrence of the external cause
CPT/HCPCS: 36415; 71250; 73610-RT; 74176; 80048; 83880; 85025; 96374; 96375; 99284; 99285-25; A9270-GY; J1885; J2270; J3490; U0002

== ENCOUNTER 2022-10-21 08:52 | Day surgery (SDC) | payer MEDICARE ==
[2022-10-21] MEDS ORDERED: MVI, Adult with Vitamin K 10 ML, Thiamine 200 MG, Zinc/Copper/Manganese/Selenium 1 ML i... IV ONE ×4 (09:30)
[2022-10-21 09:38] LABS: ESTIMATED GFR 98 mL/min (>60)
[2022-10-21] MEDS ORDERED: Cyanocobalamin (Vitamin B12) 1,000 MCG/ML SDV IM ONE (09:45)
[2022-10-21] MEDS ORDERED: Propofol 200 MG/20 ML SDV ONE (11:40)
[2022-10-21 13:57] VITALS: BP 120/55; PULSE 82
== END 2022-10-21 14:45 | disposition home or self-care (01) ==
LOC: JP.SDS 08:52
PROVIDERS: ATTEND Surgery
DX: R13.10 Dysphagia, unspecified (principal); R10.10 Upper abdominal pain, unspecified; Z98.84 Bariatric surgery status; Z20.822 Contact with and (suspected) exposure to COVID-19
CPT/HCPCS: 36415; 43235; 80053; 83735; 84100; 85027; J2704; J3411; J3420; J7120; U0002; J3490

== ENCOUNTER 2022-10-25 09:42 | Inpatient (IN) | payer MEDICARE ==
[~2022-10-25 09:42] MED LIST: Bupivacaine 0.5% 50 ML MDV ONE; Dexamethasone 4 MG/ML SDV ONE; Glycopyrrolate 0.2 MG/ML 5 ML MDV ONE; Lidocaine 1% with EPINEPHrine 1:100,000 50 ML MDV ONE; Meropenem 500 MG SDV ONE; Neostigmine Methylsulfate 1 MG/ML 5 ML Syringe ONE; Ondansetron 4 MG/2 ML SDV ONE; Propofol 200 MG/20 ML SDV ONE; Rocuronium 50 MG/5 ML Vial ONE; Succinylcholine 200 MG/10 ML MDV ONE; fentaNYL 250 MCG/5 ML SDV ONE
[2022-10-25] MEDS ORDERED: Scopolamine 1.5 MG Transdermal Patch TOP SCH (10:00)
[2022-10-25] MEDS ORDERED: HYDROmorphone 1 MG/ML Syringe IVPUSH ONE (10:18)
[2022-10-25] MEDS ORDERED: Dextrose 5%-Lactated Ringers 1,000 ML IV SCH ×2 (10:30→16:00)
[2022-10-25] MEDS ORDERED: Albuterol/Ipratropium 3.0-0.5 MG/3 ML Neb Soln NEB ONE (10:45)
[2022-10-25] MEDS ORDERED: cefOXitin 2 GM in Sodium Chloride 0.9% 50 ML IV ONE (10:45)
[2022-10-25] MEDS ORDERED: SODIUM CHLORIDE 0.9% IV SCH (11:00)
[2022-10-25] MEDS ORDERED: Ketamine 500 MG/5 ML MDV IV SCH (11:00)
[2022-10-25] MEDS ORDERED: KETAMINE IV SCH (11:00)
[2022-10-25] MEDS ORDERED: diphenhydrAMINE 25 MG Cap PO PRN (11:07)
[2022-10-25] MEDS ORDERED: Naloxone 0.4 MG/ML SDV IVPUSH PRN (11:07)
[2022-10-25] MEDS ORDERED: diphenhydrAMINE 50 MG/ML SDV IVPUSH PRN ×2 (11:07→16:00)
[2022-10-25] MEDS ORDERED: Ondansetron 4 MG/2 ML SDV IVPUSH PRN (11:07)
[2022-10-25] MEDS ORDERED: Labetalol 20 MG/4 ML Syringe ONE (11:57)
[2022-10-25] MEDS ORDERED: Rocuronium 50 MG/5 ML Vial ONE (12:19)
[2022-10-25] MEDS ORDERED: Lactated Ringers 1,000 ML ONE (13:09)
[2022-10-25] MEDS: HYDROmorphone/Normal Saline 6 MG/30 ML PCA Vial IV PRN (13:20)
[2022-10-25] MEDS ORDERED: Linezolid 600 MG/300 ML Premix Bag IRR ONE (13:55)
[2022-10-25] MEDS ORDERED: Naloxone 0.4 MG/ML SDV IV PRN (16:00)
[2022-10-25] MEDS ORDERED: Labetalol 20 MG/4 ML Syringe IVPUSH PRN (16:00)
[2022-10-25] MEDS ORDERED: Acetaminophen 500 MG Tab PO PRN (16:00)
[2022-10-25] MEDS ORDERED: Metoclopramide 10 MG/2 ML SDV IVPUSH PRN (16:00)
[2022-10-25] MEDS: Pantoprazole 40 MG Vial IVPUSH SCH (16:46)
[2022-10-25] MEDS: cefOXitin 2 GM in Sodium Chloride 0.9% 50 ML IV SCH ×2 (16:46→22:53)
[2022-10-25] MEDS ORDERED: MVI, Adult with Vitamin K 10 ML, Thiamine 200 MG, Zinc/Copper/Manganese/Selenium 1 ML i... IV SCH ×4 (17:00)
[2022-10-25] MEDS: hydrOXYzine HCl 50 MG/ML SDV IM PRN (19:55)
[2022-10-25] MEDS ORDERED: Doxepin 25 MG Cap PO SCH (21:00)
[2022-10-25] MEDS: Acetaminophen 325 MG Tab PO SCH (21:28)
[2022-10-25] MEDS: Gabapentin 300 MG Cap PO SCH (21:29)
[2022-10-25] MEDS: Metoprolol Tartrate 25 MG Tab PO SCH (21:29)
[2022-10-26] MEDS: Acetaminophen 325 MG Tab PO SCH ×4 (03:14→19:33)
[2022-10-26] MEDS ORDERED: Lactated Ringers 500 ML IV ONE (03:30)
[2022-10-26] MEDS ORDERED: Iopamidol 612 MG/ML 30 ML SDV PO STA (05:04)
[2022-10-26 05:11] LABS: ESTIMATED GFR 98 mL/min (>60)
[2022-10-26] MEDS: cefOXitin 2 GM in Sodium Chloride 0.9% 50 ML IV SCH ×4 (05:12→22:09)
[2022-10-26] MEDS: HYDROmorphone/Normal Saline 6 MG/30 ML PCA Vial IV PRN ×2 (08:09→19:32)
[2022-10-26] MEDS: Dextrose 5%-Lactated Ringers 1,000 ML IV SCH (08:15)
[2022-10-26] MEDS: Bisacodyl 5 MG Tab PO SCH ×2 (08:18→20:36)
[2022-10-26] MEDS: Docusate Sodium 100 MG Cap PO SCH ×2 (08:19→20:35)
[2022-10-26] MEDS: Aspirin 81 MG Tab.EC PO SCH (08:51)
[2022-10-26] MEDS: Metoprolol Tartrate 25 MG Tab PO SCH ×2 (08:51→20:36)
[2022-10-26] MEDS: SCOPOLAMINE PATCH CHECK TOP SCH (08:53)
[2022-10-26] MEDS: Furosemide 20 MG/2 ML VIAL IVPUSH SCH (08:54)
[2022-10-26] MEDS: Celecoxib 200 MG Cap PO SCH ×2 (09:39→20:35)
[2022-10-26] MEDS ORDERED: MVI, Adult with Vitamin K 10 ML, Thiamine 200 MG, Zinc/Copper/Manganese/Selenium 1 ML i... IV SCH ×4 (16:00)
[2022-10-26] MEDS: Pantoprazole 40 MG Vial IVPUSH SCH (16:10)
[2022-10-26] MEDS: Gabapentin 300 MG Cap PO SCH (20:37)
[2022-10-26] MEDS: DOXEPIN HCL 10 MG/ML PO SCH (20:38)
[2022-10-27] MEDS: Acetaminophen 325 MG Tab PO SCH ×4 (02:31→20:13)
[2022-10-27] MEDS: Dextrose 5%-Lactated Ringers 1,000 ML IV SCH ×2 (03:19→16:08)
[2022-10-27] MEDS: cefOXitin 2 GM in Sodium Chloride 0.9% 50 ML IV SCH ×2 (04:05→10:50)
[2022-10-27] MEDS: Celecoxib 200 MG Cap PO SCH ×2 (08:09→20:13)
[2022-10-27] MEDS ORDERED: Cyanocobalamin (Vitamin B12) 1,000 MCG/ML SDV IM ONE (09:00)
[2022-10-27] MEDS: HYDROmorphone/Normal Saline 6 MG/30 ML PCA Vial IV PRN ×2 (09:40→21:41)
[2022-10-27] MEDS: SCOPOLAMINE PATCH CHECK TOP SCH (09:45)
[2022-10-27] MEDS: Bisacodyl 5 MG Tab PO SCH ×2 (09:46→20:14)
[2022-10-27] MEDS: Docusate Sodium 100 MG Cap PO SCH ×2 (09:46→20:13)
[2022-10-27] MEDS: Metoprolol Tartrate 25 MG Tab PO SCH ×2 (09:47→20:12)
[2022-10-27] MEDS: Aspirin 81 MG Tab.EC PO SCH (09:47)
[2022-10-27] MEDS: Furosemide 20 MG/2 ML VIAL IVPUSH SCH (09:56)
[2022-10-27] MEDS: Ondansetron 4 MG/2 ML SDV IVPUSH PRN (14:21)
[2022-10-27] MEDS: Pantoprazole 40 MG Tab.CR PO SCH (15:48)
[2022-10-27] MEDS: Gabapentin 300 MG Cap PO SCH (20:14)
[2022-10-27] MEDS: DOXEPIN HCL 10 MG/ML PO SCH (21:09)
[2022-10-28] MEDS: Acetaminophen 325 MG Tab PO SCH ×4 (01:01→20:20)
[2022-10-28] MEDS: Dextrose 5%-Lactated Ringers 1,000 ML IV SCH ×2 (02:11→13:18)
[2022-10-28 05:20] LABS: ESTIMATED GFR 104 mL/min (>60)
[2022-10-28] MEDS ORDERED: Meropenem 500 MG SDV ONE (06:40)
[2022-10-28] MEDS ORDERED: Bupivacaine 0.5% 50 ML MDV ONE (06:40)
[2022-10-28] MEDS ORDERED: Lidocaine 1% with EPINEPHrine 1:100,000 50 ML MDV ONE (06:40)
[2022-10-28] MEDS ORDERED: Iopamidol 612 MG/ML 100 ML Bottle IV ONE (07:20)
[2022-10-28] MEDS ORDERED: Sodium Chloride 0.9% 50 ML IV ONE (07:20)
[2022-10-28] MEDS ORDERED: Sodium Chloride 0.9% 10 ML Syringe FLUSH ONE (07:21)
[2022-10-28] MEDS: Docusate Sodium 100 MG Cap PO SCH ×2 (08:22→20:21)
[2022-10-28] MEDS: Celecoxib 200 MG Cap PO SCH ×2 (08:22→20:21)
[2022-10-28] MEDS: Bisacodyl 5 MG Tab PO SCH ×2 (08:23→20:21)
[2022-10-28] MEDS: Aspirin 81 MG Tab.EC PO SCH (08:24)
[2022-10-28] MEDS: Metoprolol Tartrate 25 MG Tab PO SCH ×2 (08:25→20:24)
[2022-10-28] MEDS: Furosemide 20 MG/2 ML VIAL IVPUSH SCH (08:33)
[2022-10-28] MEDS: Ondansetron 4 MG/2 ML SDV IVPUSH PRN (12:10)
[2022-10-28] MEDS: Meropenem 500 MG in Sodium Chloride 0.9% 50 ML IV SCH ×2 (13:25→20:20)
[2022-10-28] MEDS: Magnesium Sulfate/Water 2 GM in Premix Bag 1 BAG IV SCH ×2 (15:48→21:07)
[2022-10-28] MEDS: Pantoprazole 40 MG Tab.CR PO SCH (15:48)
[2022-10-28] MEDS: HYDROmorphone/Normal Saline 6 MG/30 ML PCA Vial IV PRN (15:58)
[2022-10-28] MEDS ORDERED: Furosemide 20 MG/2 ML VIAL IV ONE (16:00)
[2022-10-28] MEDS: DOXEPIN HCL 10 MG/ML PO SCH (20:22)
[2022-10-28] MEDS: Gabapentin 300 MG Cap PO SCH (20:22)
[2022-10-29] MEDS: Dextrose 5%-Lactated Ringers 1,000 ML IV SCH ×3 (00:27→23:52)
[2022-10-29] MEDS: Acetaminophen 325 MG Tab PO SCH ×4 (02:17→22:10)
[2022-10-29] MEDS: Meropenem 500 MG in Sodium Chloride 0.9% 50 ML IV SCH ×4 (02:22→19:33)
[2022-10-29] MEDS: Magnesium Sulfate/Water 2 GM in Premix Bag 1 BAG IV SCH ×4 (03:06→22:11)
[2022-10-29 05:12] LABS: ESTIMATED GFR 98 mL/min (>60)
[2022-10-29] MEDS ORDERED: Meropenem 500 MG SDV ONE (06:51)
[2022-10-29] MEDS ORDERED: Lidocaine 1% with EPINEPHrine 1:100,000 50 ML MDV ONE (06:52)
[2022-10-29] MEDS ORDERED: Bupivacaine 0.5% 50 ML MDV ONE (06:52)
[2022-10-29] MEDS ORDERED: Propofol 200 MG/20 ML SDV ONE (07:14)
[2022-10-29] MEDS: Celecoxib 200 MG Cap PO SCH ×2 (10:06→22:10)
[2022-10-29] MEDS: Metoprolol Tartrate 25 MG Tab PO SCH ×2 (10:10→22:12)
[2022-10-29] MEDS: Docusate Sodium 100 MG Cap PO SCH ×2 (10:10→22:10)
[2022-10-29] MEDS: Aspirin 81 MG Tab.EC PO SCH (10:12)
[2022-10-29] MEDS: Bisacodyl 5 MG Tab PO SCH ×2 (10:13→22:10)
[2022-10-29] MEDS: Furosemide 20 MG/2 ML VIAL IVPUSH SCH (10:14)
[2022-10-29] MEDS: HYDROmorphone/Normal Saline 6 MG/30 ML PCA Vial IV PRN ×2 (11:18→22:50)
[2022-10-29] MEDS: Ondansetron 4 MG/2 ML SDV IVPUSH PRN (13:42)
[2022-10-29] MEDS: Pantoprazole 40 MG Tab.CR PO SCH (17:47)
[2022-10-29] MEDS: Gabapentin 300 MG Cap PO SCH (22:11)
[2022-10-29] MEDS: DOXEPIN HCL 10 MG/ML PO SCH (22:18)
[2022-10-30] MEDS: Meropenem 500 MG in Sodium Chloride 0.9% 50 ML IV SCH ×4 (02:13→19:14)
[2022-10-30] MEDS: Acetaminophen 325 MG Tab PO SCH ×4 (02:18→20:34)
[2022-10-30] MEDS: Magnesium Sulfate/Water 2 GM in Premix Bag 1 BAG IV SCH ×2 (04:16→11:31)
[2022-10-30 05:06] LABS: ESTIMATED GFR 98 mL/min (>60)
[2022-10-30] MEDS: Celecoxib 200 MG Cap PO SCH ×2 (09:24→20:34)
[2022-10-30] MEDS: Aspirin 81 MG Tab.EC PO SCH (09:25)
[2022-10-30] MEDS: Docusate Sodium 100 MG Cap PO SCH ×2 (09:25→20:34)
[2022-10-30] MEDS: Furosemide 20 MG/2 ML VIAL IVPUSH SCH (09:26)
[2022-10-30] MEDS: Metoprolol Tartrate 25 MG Tab PO SCH ×2 (09:28→20:34)
[2022-10-30] MEDS: Dextrose 5%-Lactated Ringers 1,000 ML IV SCH (11:35)
[2022-10-30] MEDS: traMADol 50 MG Tab PO PRN ×2 (13:12→19:11)
[2022-10-30] MEDS: Pantoprazole 40 MG Tab.CR PO SCH (15:45)
[2022-10-30] MEDS: hydrOXYzine HCl 50 MG/ML SDV IM PRN (16:52)
[2022-10-30] MEDS: Gabapentin 300 MG Cap PO SCH (20:34)
[2022-10-30] MEDS: DOXEPIN HCL 10 MG/ML PO SCH (20:46)
[2022-10-31] MEDS: Acetaminophen 325 MG Tab PO SCH ×4 (02:14→20:38)
[2022-10-31] MEDS: Meropenem 500 MG in Sodium Chloride 0.9% 50 ML IV SCH ×4 (02:14→20:36)
[2022-10-31] MEDS ORDERED: Iopamidol 612 MG/ML 100 ML Bottle IV PRN (04:19)
[2022-10-31] MEDS ORDERED: Sodium Chloride 0.9% 50 ML IV SCH (04:30)
[2022-10-31] MEDS: traMADol 50 MG Tab PO PRN ×3 (04:57→18:22)
[2022-10-31 04:58] LABS: ESTIMATED GFR 104 mL/min (>60)
[2022-10-31] MEDS: Docusate Sodium 100 MG Cap PO SCH ×2 (09:32→20:38)
[2022-10-31] MEDS: Celecoxib 200 MG Cap PO SCH ×2 (09:32→20:38)
[2022-10-31] MEDS: Aspirin 81 MG Tab.EC PO SCH (09:33)
[2022-10-31] MEDS: Furosemide 20 MG/2 ML VIAL IVPUSH SCH (09:34)
[2022-10-31] MEDS: Metoprolol Tartrate 25 MG Tab PO SCH ×2 (09:38→20:38)
[2022-10-31] MEDS ORDERED: Potassium Chloride 20 MEQ Tab.ER PO ONE (10:00)
[2022-10-31] MEDS: Dextrose 5%-Lactated Ringers 1,000 ML IV SCH (12:49)
[2022-10-31] MEDS ORDERED: Furosemide 20 MG/2 ML VIAL IVPUSH ONE (13:00)
[2022-10-31] MEDS: Potassium Phos in 0.9 % NaCl 15 MMOL in Premix Bag 1 BAG IV SCH ×4 (13:01→16:25)
[2022-10-31] MEDS ORDERED: Albuterol/Ipratropium 3.0-0.5 MG/3 ML Neb Soln NEB PRN (14:44)
[2022-10-31] MEDS: Albuterol/Ipratropium 3.0-0.5 MG/3 ML Neb Soln NEB SCH ×2 (14:50→20:37)
[2022-10-31] MEDS ORDERED: Bumetanide 1 MG/4 ML MDV IVPUSH ONE (15:52)
[2022-10-31] MEDS: LORazepam 0.5 MG Tab PO PRN (16:24)
[2022-10-31] MEDS: Pantoprazole 40 MG Tab.CR PO SCH (16:31)
[2022-10-31] MEDS: Ondansetron 4 MG/2 ML SDV IVPUSH PRN (19:03)
[2022-10-31] MEDS: Gabapentin 300 MG Cap PO SCH (20:38)
[2022-10-31] MEDS: DOXEPIN HCL 10 MG/ML PO SCH (20:41)
[2022-11-01] MEDS: Meropenem 500 MG in Sodium Chloride 0.9% 50 ML IV SCH ×4 (02:39→19:40)
[2022-11-01] MEDS: Acetaminophen 325 MG Tab PO SCH ×5 (02:40→19:39)
[2022-11-01] MEDS: Albuterol/Ipratropium 3.0-0.5 MG/3 ML Neb Soln NEB SCH ×4 (02:48→20:15)
[2022-11-01 04:58] LABS: ESTIMATED GFR 104 mL/min (>60)
[2022-11-01] MEDS: Sodium Chloride 0.9% 1,000 ML IV SCH (07:19)
[2022-11-01] MEDS: hydrOXYzine HCl 50 MG/ML SDV IM PRN ×2 (08:11→14:21)
[2022-11-01] MEDS: Metoprolol Tartrate 25 MG Tab PO SCH ×2 (08:39→20:09)
[2022-11-01] MEDS: Docusate Sodium 100 MG Cap PO SCH ×2 (08:39→20:09)
[2022-11-01] MEDS: Aspirin 81 MG Tab.EC PO SCH (08:39)
[2022-11-01] MEDS: Celecoxib 200 MG Cap PO SCH ×2 (08:39→20:09)
[2022-11-01] MEDS: Pantoprazole 40 MG Vial IVPUSH SCH (08:48)
[2022-11-01] MEDS: Furosemide 20 MG/2 ML VIAL IVPUSH SCH ×2 (08:48→18:19)
[2022-11-01] MEDS: Albumin Human 25 GM in Premix Bag 1 BAG IV SCH (08:49)
[2022-11-01] MEDS ORDERED: Lidocaine 1% 20 ML MDV INJECT ONE (09:16)
[2022-11-01] MEDS: Linezolid 600 MG in Premix Bag 1 BAG IV SCH ×2 (13:53→22:51)
[2022-11-01] MEDS: Levofloxacin/Dextrose 5%-Water 750 MG in Premix Bag 1 BAG IV SCH (13:57)
[2022-11-01] MEDS: Gabapentin 300 MG Cap PO SCH (20:09)
[2022-11-01] MEDS: DOXEPIN HCL 10 MG/ML PO SCH (20:15)
[2022-11-01] MEDS: LORazepam 0.5 MG Tab PO PRN (22:53)
[2022-11-02] MEDS: Albuterol/Ipratropium 3.0-0.5 MG/3 ML Neb Soln NEB SCH ×4 (02:35→21:31)
[2022-11-02] MEDS: Meropenem 500 MG in Sodium Chloride 0.9% 50 ML IV SCH ×4 (02:35→20:56)
[2022-11-02] MEDS: Acetaminophen 325 MG Tab PO SCH ×4 (02:36→20:57)
[2022-11-02] MEDS: Sodium Chloride 0.9% 1,000 ML IV SCH ×2 (02:39→06:24)
[2022-11-02 04:47] LABS: ESTIMATED GFR 104 mL/min (>60)
[2022-11-02] MEDS: Furosemide 20 MG/2 ML VIAL IVPUSH SCH ×2 (06:24→17:29)
[2022-11-02] MEDS ORDERED: Potassium Chloride Riders 40 MEQ in Premix Bag 1 BAG IV ONE (07:14)
[2022-11-02] MEDS ORDERED: Potassium Chloride 10 MEQ in Premix Bag 1 BAG IV SCH (08:00)
[2022-11-02] MEDS ORDERED: Potassium Chloride 20 MEQ Tab.ER PO ONE (08:16)
[2022-11-02] MEDS: Potassium Chloride 10 MEQ in Premix Bag 1 BAG IV SCH ×4 (08:32→12:54)
[2022-11-02] MEDS: Albumin Human 25 GM in Premix Bag 1 BAG IV SCH (08:35)
[2022-11-02] MEDS: Docusate Sodium 100 MG Cap PO SCH ×2 (09:39→20:57)
[2022-11-02] MEDS: Metoprolol Tartrate 25 MG Tab PO SCH ×2 (09:39→21:11)
[2022-11-02] MEDS: Celecoxib 200 MG Cap PO SCH ×2 (09:39→20:57)
[2022-11-02] MEDS: Pantoprazole 40 MG Vial IVPUSH SCH (09:39)
[2022-11-02] MEDS: Aspirin 81 MG Tab.EC PO SCH (09:39)
[2022-11-02] MEDS: traMADol 50 MG Tab PO PRN ×2 (11:10→18:32)
[2022-11-02] MEDS: Linezolid 600 MG in Premix Bag 1 BAG IV SCH ×2 (11:40→23:12)
[2022-11-02] MEDS: Levofloxacin/Dextrose 5%-Water 750 MG in Premix Bag 1 BAG IV SCH (12:56)
[2022-11-02] MEDS: Enoxaparin 30 MG/0.3 ML Syringe SUBCUT SCH (14:28)
[2022-11-02] MEDS: hydrOXYzine HCl 50 MG/ML SDV IM PRN (19:38)
[2022-11-02] MEDS: Gabapentin 300 MG Cap PO SCH (20:57)
[2022-11-02] MEDS: DOXEPIN HCL 10 MG/ML PO SCH (21:19)
[2022-11-02] MEDS: LORazepam 0.5 MG Tab PO PRN (21:33)
[2022-11-03] MEDS: Ondansetron 4 MG/2 ML SDV IVPUSH PRN ×3 (00:35→14:13)
[2022-11-03] MEDS: traMADol 50 MG Tab PO PRN ×3 (00:37→20:35)
[2022-11-03] MEDS: Meropenem 500 MG in Sodium Chloride 0.9% 50 ML IV SCH ×4 (01:28→20:36)
[2022-11-03] MEDS: Sodium Chloride 0.9% 1,000 ML IV SCH ×2 (01:29→04:32)
[2022-11-03] MEDS: Acetaminophen 325 MG Tab PO SCH ×5 (01:29→20:35)
[2022-11-03] MEDS: Albuterol/Ipratropium 3.0-0.5 MG/3 ML Neb Soln NEB SCH ×4 (03:00→20:33)
[2022-11-03] MEDS ORDERED: Iopamidol 612 MG/ML 100 ML Bottle IV STA (04:39)
[2022-11-03] MEDS ORDERED: Sodium Chloride 0.9% 50 ML IV STA (04:40)
[2022-11-03] MEDS: hydrOXYzine HCl 50 MG/ML SDV IM PRN ×2 (04:42→15:09)
[2022-11-03 05:26] LABS: ESTIMATED GFR 104 mL/min (>60)
[2022-11-03] MEDS: Furosemide 20 MG/2 ML VIAL IVPUSH SCH ×2 (06:16→17:31)
[2022-11-03] MEDS ORDERED: Furosemide 20 MG/2 ML VIAL IVPUSH ONE (06:46)
[2022-11-03] MEDS ORDERED: Potassium Phosphates 3 mMole/ML 15 ML SDV IV ONE (08:00)
[2022-11-03] MEDS: Docusate Sodium 100 MG Cap PO SCH ×2 (09:10→20:33)
[2022-11-03] MEDS: Aspirin 81 MG Tab.EC PO SCH (09:10)
[2022-11-03] MEDS: Metoprolol Tartrate 25 MG Tab PO SCH ×2 (09:10→20:33)
[2022-11-03] MEDS: Celecoxib 200 MG Cap PO SCH ×2 (09:10→20:33)
[2022-11-03] MEDS: Potassium Phos in 0.9 % NaCl 15 MMOL in Premix Bag 1 BAG IV SCH ×8 (09:25→20:37)
[2022-11-03] MEDS: Albumin Human 25 GM in Premix Bag 1 BAG IV SCH (09:30)
[2022-11-03] MEDS: Pantoprazole 40 MG Vial IVPUSH SCH (09:38)
[2022-11-03] MEDS: Linezolid 600 MG in Premix Bag 1 BAG IV SCH ×2 (13:11→22:55)
[2022-11-03] MEDS: Enoxaparin 30 MG/0.3 ML Syringe SUBCUT SCH (14:17)
[2022-11-03] MEDS: LORazepam 0.5 MG Tab PO PRN (14:38)
[2022-11-03] MEDS: Levofloxacin/Dextrose 5%-Water 750 MG in Premix Bag 1 BAG IV SCH (15:13)
[2022-11-03] MEDS: Gabapentin 300 MG Cap PO SCH (20:35)
[2022-11-03] MEDS: DOXEPIN HCL 10 MG/ML PO SCH (20:38)
[2022-11-04] MEDS: Acetaminophen 325 MG Tab PO SCH ×4 (02:01→21:34)
[2022-11-04] MEDS: Meropenem 500 MG in Sodium Chloride 0.9% 50 ML IV SCH ×4 (02:02→20:34)
[2022-11-04] MEDS: Albuterol/Ipratropium 3.0-0.5 MG/3 ML Neb Soln NEB SCH ×4 (02:11→21:17)
[2022-11-04 04:51] LABS: ESTIMATED GFR 104 mL/min (>60)
[2022-11-04] MEDS: Furosemide 20 MG/2 ML VIAL IVPUSH SCH ×2 (06:05→18:14)
[2022-11-04] MEDS ORDERED: Lidocaine 1% 20 ML MDV INJECT ONE (08:43)
[2022-11-04] MEDS: Metoprolol Tartrate 25 MG Tab PO SCH ×2 (08:45→21:42)
[2022-11-04] MEDS: Celecoxib 200 MG Cap PO SCH ×3 (08:45→21:34)
[2022-11-04] MEDS: Aspirin 81 MG Tab.EC PO SCH (08:45)
[2022-11-04] MEDS: Docusate Sodium 100 MG Cap PO SCH ×2 (08:45→21:34)
[2022-11-04] MEDS: Magnesium Sulfate/Water 2 GM/50 ML BAG IV SCH ×3 (08:47→21:27)
[2022-11-04] MEDS: Pantoprazole 40 MG Vial IVPUSH SCH (08:50)
[2022-11-04] MEDS: hydrOXYzine HCl 50 MG/ML SDV IM PRN (10:42)
[2022-11-04] MEDS: Linezolid 600 MG in Premix Bag 1 BAG IV SCH ×2 (10:51→23:06)
[2022-11-04] MEDS: traMADol 50 MG Tab PO PRN (12:45)
[2022-11-04] MEDS: Enoxaparin 30 MG/0.3 ML Syringe SUBCUT SCH (13:13)
[2022-11-04] MEDS: Albumin Human 25 GM in Premix Bag 1 BAG IV SCH (14:27)
[2022-11-04] MEDS: Gabapentin 300 MG Cap PO SCH (21:34)
[2022-11-04] MEDS: DOXEPIN HCL 10 MG/ML PO SCH (21:37)
[2022-11-05] MEDS: Meropenem 500 MG in Sodium Chloride 0.9% 50 ML IV SCH ×4 (02:31→20:31)
[2022-11-05] MEDS: Acetaminophen 325 MG Tab PO SCH ×5 (02:31→20:53)
[2022-11-05] MEDS: traMADol 50 MG Tab PO PRN ×3 (03:26→20:45)
[2022-11-05] MEDS: Albuterol/Ipratropium 3.0-0.5 MG/3 ML Neb Soln NEB SCH ×4 (03:33→20:54)
[2022-11-05] MEDS: Magnesium Sulfate/Water 2 GM/50 ML BAG IV SCH ×4 (03:33→21:10)
[2022-11-05] MEDS: Sodium Chloride 0.9% 1,000 ML IV SCH (03:42)
[2022-11-05 05:03] LABS: ESTIMATED GFR 111 mL/min (>60)
[2022-11-05] MEDS: Furosemide 20 MG/2 ML VIAL IVPUSH SCH ×2 (06:42→18:26)
[2022-11-05] MEDS: Celecoxib 200 MG Cap PO SCH ×2 (09:24→20:38)
[2022-11-05] MEDS: Metoprolol Tartrate 25 MG Tab PO SCH ×2 (09:25→20:47)
[2022-11-05] MEDS: Aspirin 81 MG Tab.EC PO SCH (09:28)
[2022-11-05] MEDS: Docusate Sodium Liquid 50 MG/5 ML ML 473 ML Bottle PO SCH ×2 (09:29→23:09)
[2022-11-05] MEDS: Pantoprazole 40 MG Vial IVPUSH SCH (09:31)
[2022-11-05] MEDS: Ondansetron 4 MG/2 ML SDV IVPUSH PRN (09:54)
[2022-11-05] MEDS ORDERED: Ampicillin 2 GM in Sodium Chloride 0.9% 100 ML IV SCH (12:00)
[2022-11-05] MEDS: Linezolid 600 MG in Premix Bag 1 BAG IV SCH (12:07)
[2022-11-05] MEDS: Enoxaparin 30 MG/0.3 ML Syringe SUBCUT SCH (13:58)
[2022-11-05] MEDS: Albumin Human 25 GM in Premix Bag 1 BAG IV SCH (14:00)
[2022-11-05] MEDS ORDERED: Meropenem 500 MG in Sodium Chloride 0.9% 50 ML IV SCH (14:00)
[2022-11-05] MEDS: DOXEPIN HCL 10 MG/ML PO SCH (21:07)
[2022-11-05] MEDS: Gabapentin 300 MG Cap PO SCH (21:10)
[2022-11-05] MEDS: LORazepam 0.5 MG Tab PO PRN (21:18)
[2022-11-05] MEDS ORDERED: Docusate Sodium 100 MG Cap PO ONE (23:18)
[2022-11-06] MEDS: Magnesium Sulfate/Water 2 GM/50 ML BAG IV SCH ×2 (02:11→10:30)
[2022-11-06] MEDS: Albuterol/Ipratropium 3.0-0.5 MG/3 ML Neb Soln NEB SCH ×3 (02:11→14:31)
[2022-11-06] MEDS: Acetaminophen 325 MG Tab PO SCH ×3 (02:11→13:55)
[2022-11-06] MEDS: Meropenem 500 MG in Sodium Chloride 0.9% 50 ML IV SCH ×2 (02:11→08:33)
[2022-11-06] MEDS: Furosemide 20 MG/2 ML VIAL IVPUSH SCH (05:42)
[2022-11-06 06:34] LABS: ESTIMATED GFR 104 mL/min (>60)
[2022-11-06] MEDS: Docusate Sodium Liquid 50 MG/5 ML ML 473 ML Bottle PO SCH (09:19)
[2022-11-06] MEDS: Celecoxib 200 MG Cap PO SCH (09:19)
[2022-11-06] MEDS: Aspirin 81 MG Tab.EC PO SCH (09:19)
[2022-11-06] MEDS: Metoprolol Tartrate 25 MG Tab PO SCH (09:19)
[2022-11-06] MEDS: Pantoprazole 40 MG Vial IVPUSH SCH (10:32)
[2022-11-06] MEDS ORDERED: Dextrose 5%-0.45% NaCl 1,000 ML IV SCH (10:45)
[2022-11-06] MEDS ORDERED: Lidocaine 2% Viscous Solution 15 ML UD PO PRN (12:08)
[2022-11-06] MEDS ORDERED: Prochlorperazine 10 MG in Sodium Chloride 0.9% 50 ML IV PRN (12:08)
[2022-11-06] MEDS ORDERED: MORPHINE 10 MG RECTAL PRN (12:08)
[2022-11-06] MEDS ORDERED: diphenhydrAMINE 25 MG Cap PO PRN (12:08)
[2022-11-06] MEDS ORDERED: Magnesium Hydroxide 400 MG/5 ML Susp 30 ML Cup PO PRN (12:08)
[2022-11-06] MEDS ORDERED: Atropine 0.4 MG/ML SDV IV PRN (12:08)
[2022-11-06] MEDS ORDERED: Nitroglycerin 0.4 MG Tab.SL SL PRN (12:08)
[2022-11-06] MEDS ORDERED: Diazepam 5 MG Tab PO PRN (12:08)
[2022-11-06] MEDS ORDERED: Enoxaparin 40 MG/0.4 ML Syringe SUBCUT SCH (14:00)
[2022-11-06] MEDS: Morphine 2 MG/ML SYRINGE IVPUSH PRN ×2 (14:15→19:21)
[2022-11-06] MEDS: LORazepam ORAL Concentrate 1MG/0.5ML U/D BUCCAL PRN ×3 (14:16→20:03)
[2022-11-06] MEDS: Morphine 10 MG/0.5 ML Oral Syringe BUCCAL PRN ×3 (18:19→23:12)
[2022-11-06] MEDS: DOXEPIN HCL 10 MG/ML PO SCH (20:38)
[2022-11-07] MEDS: Atropine Sulfate Ophth 2 ML Drops SL PRN ×5 (00:03→10:03)
[2022-11-07] MEDS: Morphine 10 MG/0.5 ML Oral Syringe BUCCAL PRN ×5 (00:12→10:02)
[2022-11-07] MEDS: LORazepam ORAL Concentrate 1MG/0.5ML U/D BUCCAL PRN ×2 (07:26)
[2022-11-07 07:31] VITALS: BP 88/51; PULSE 113
== END 2022-11-07 10:30 | disposition expired | DRG 330 ==
LOC: UNDOADMIN 09:42 → JP.SDSSCHI 09:42 → JP.ICU 15:35
PROVIDERS: ADMIT Surgery; ATTEND Student in an Organized Health Care Education/Training Program
PROC: 0DBA0ZZ Excision of Jejunum, Open Approach (ICD-10-PCS; principal; 2022-10-25)
PROC: 0DBL0ZZ Excision of Transverse Colon, Open Approach (ICD-10-PCS; 2022-10-25)
PROC: 0DB80ZZ Excision of Small Intestine, Open Approach (ICD-10-PCS; 2022-10-25)
PROC: 0DBW0ZZ Excision of Peritoneum, Open Approach (ICD-10-PCS; 2022-10-25)
PROC: 0WUF0JZ Supplement Abdominal Wall with Synthetic Substitute, Open Approach (ICD-10-PCS; 2022-10-25)
PROC: 0WQF0ZZ Repair Abdominal Wall, Open Approach (ICD-10-PCS; 2022-10-29)
PROC: 0W9F30Z Drainage of Abdominal Wall with Drainage Device, Percutaneous Approach (ICD-10-PCS; 2022-11-01)
DX: K94.29 Other complications of gastrostomy (principal); E44.1 Mild protein-calorie malnutrition; K63.2 Fistula of intestine; L02.211 Cutaneous abscess of abdominal wall; M25.561 Pain in right knee; Z88.5 Allergy status to narcotic agent; Z66 Do not resuscitate; I25.10 Atherosclerotic heart disease of native coronary artery without angina pectoris; K59.09 Other constipation; G89.29 Other chronic pain; Z51.5 Encounter for palliative care; M06.9 Rheumatoid arthritis, unspecified; J44.9 Chronic obstructive pulmonary disease, unspecified; M85.80 Other specified disorders of bone density and structure, unspecified site; J84.10 Pulmonary fibrosis, unspecified; M79.7 Fibromyalgia; M81.0 Age-related osteoporosis without current pathological fracture; K21.9 Gastro-esophageal reflux disease without esophagitis; M19.90 Unspecified osteoarthritis, unspecified site; Z98.890 Other specified postprocedural states; Z98.84 Bariatric surgery status; Z79.82 Long term (current) use of aspirin; Z79.899 Other long term (current) drug therapy; Z88.8 Allergy status to other drugs, medicaments and biological substances; Z98.49 Cataract extraction status, unspecified eye; Z90.710 Acquired absence of both cervix and uterus; Z90.49 Acquired absence of other specified parts of digestive tract; Z68.31 Body mass index [BMI] 31.0-31.9, adult
CPT/HCPCS: 36415; 36430; 49405; 49405-26; 51702; 71045; 71045-26; 73560-26-RT; 73560-RT; 74177; 74177-26; 74240; 74240-26; 76705; 76705-26; 77012; 77012-26; 80053; 80202; 82728; 82947; 83735; 83880; 84100; 85025; 85027; 86850; 86900; 86901; 86920; 86922; 87040; 87070; 87075; 87077; 87186; 87205; 88300; 88305; 88307; 93005; 93010; 93970; 93970-26; 94640; 94667; 94668; 97110-GO; 97110-GP; 97116-GP; 97162-GP; 97165-GO; 97530-GP; 97535-GO; 99222; 99231; 99232; A9270-GY; C1729; C1769; C9113; J0131; J0171; J0330; J0694; J1100; J1170; J1650; J1940; J1956; J2020; J2185; J2270; J2405; J2704; J2710; J2765; J2795; J3010; J3370; J3410; J3411; J3420; J3475; J3480; J3490; J7030; J7050; J7120; J7121; J7620; P9016; P9047; Q9967